=== PATIENT | female | born 1945 | race Caucasian/White ===

== ENCOUNTER 2024-10-26 19:52 | Inpatient (IN) | payer MEDICARE, OTHER ==
--- NOTE | 2024-10-26 20:31 | ED ---
Fall HPI - General Chief Complaint: Fall Stated Complaint: Fall, Right pneumothorax Time Seen by Provider: 10/26/24 20:01 Source: patient, EMS Mode of arrival: EMS - History of Present Illness Initial Comments: This patient arrives as transfer from [facility]. The patient had gone to have appointment with her primary physician and was transferred to the emergency department. She has had multiple recent falls and complains of some lightheadedness when standing. The patient was evaluated at the emergency department where she was found to be moderately anemic compared with her previous labs and she also is reported to have had new displaced right posterior fourth rib fracture with an associated right sided pneumothorax. The patient's complete workup included labs with a white blood cell count 12.7, hemoglobin 8.4, hematocrit 25.2, platelets 433. Chemistries sodium 143, potassium 3.4, chloride 104, CO2 28, BUN 35, creatinine 0.9, glucose 184. AST 85, ALT 50. Troponin normal. Magnesium normal. The patient also had CT of the brain which was negative for acute injury. She had CT of the cervical spine which did reveal presence of pneumothorax on the right side. The spine with no acute fracture. 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 Fall Occurred: home Loss of Consciousness: none Prolonged Down Time?: no Symptoms Prior to Fall: none Location: head, chest, back Severity: moderate Quality: sharp Context: tripped/slipped Associated Symptoms: headache, chest paint - Related Data Home Medications Medication Instructions Recorded Confirmed lisinopriL [Prinivil] 20 mg PO DAILY 05/01/15 10/26/24 Alendronate Sodium [Fosamax] 70 mg PO WEEKLY 10/26/24 10/26/24 Ammonium Lactate Cream [Lac-Hydrin 1 applic TOPICAL BID PRN 10/26/24 10/26/24 12% Cream] Cholecalciferol [Vitamin D3 (125 125 mcg PO DAILY 10/26/24 10/26/24 Mcg = 5000 Iu)] Levothyroxine Sodium [Synthroid] 50 mcg PO DAILY 10/26/24 10/26/24 Charles Natural Red Yeast Rice 1 cap PO DAILY 10/26/24 10/26/24 1200-600mg Cap Rosuvastatin [Crestor] 10 mg PO DAILY 10/26/24 10/26/24 Triamcinolone 0.1% Cream [Kenalog 1 applic TOPICAL BID PRN 10/26/24 10/26/24 0.1% Cream] amLODIPine [Norvasc] 10 mg PO DAILY 10/26/24 10/26/24 Previous Rx's Medication Instructions Recorded Acetaminophen Tab [Tylenol Tab] 650 mg PO Q4H PRN #30 tablet 10/31/24 Ibuprofen [Motrin] 600 mg PO Q8HR PRN #30 tab 10/31/24 QUEtiapine [SEROquel] 25 mg PO HS tab 10/31/24 Allergies Allergy/AdvReac Type Severity Reaction Status Date / Time No Known Allergies Allergy Verified 10/26/24 21:03 Review of Systems ROS Statement: Those systems with pertinent positive or pertinent negative responses have been documented in the HPI. ROS Other: All systems not noted in ROS Statement are negative. Constitutional: Reports: weakness Eyes: Denies: vision change Respiratory: Denies: cough, dyspnea Cardiovascular: Reports: chest pain. Denies: palpitations Gastrointestinal: Denies: abdominal pain, vomiting, diarrhea Genitourinary: Denies: dysuria, hematuria Musculoskeletal: Reports: back pain Skin: Denies: rash Neurological: Denies: headache, weakness, numbness Past Medical History Past Medical History: Hypertension Additional Past Medical History / Comment(s): Wound on R leg below knee and foot not healing History of Any Multi-Drug Resistant Organisms: None Reported Additional Past Surgical History / Comment(s): cyst on vocal cord Past Anesthesia/Blood Transfusion Reactions: No Reported Reaction Past Psychological History: No Psychological Hx Reported Past Alcohol Use History: Occasional Past Drug Use History: None Reported - Past Family History Mother Family Medical History: No Reported History Additional Family Medical History / Comment(s): age 83. Fell and broke hip. Father Family Medical History: No Reported History Additional Family Medical History / Comment(s): age 75 of TB General Exam General appearance: alert, in no apparent distress Head exam: Present: atraumatic, normocephalic Eye exam: Present: normal appearance, EOMI. Absent: scleral icterus, conjunctival injection ENT exam: Present: normal oropharynx Neck exam: Present: normal inspection, full ROM. Absent: tenderness Respiratory exam: Present: normal lung sounds bilaterally, chest wall tenderness. Absent: respiratory distress, wheezes, rales, rhonchi, stridor, accessory muscle use Cardiovascular Exam: Present: regular rate, normal rhythm, normal heart sounds. Absent: systolic murmur, diastolic murmur, rubs, gallop GI/Abdominal exam: Present: soft. Absent: distended, tenderness, guarding, rebound, rigid, mass Extremities exam: Present: full ROM, normal capillary refill, other (Ecchymosis and swelling from distal thigh to ankle on right side). Absent: tenderness, pedal edema, calf tenderness Back exam: Present: normal inspection. Absent: vertebral tenderness Neurological exam: Present: alert. Absent: motor sensory deficit Skin exam: Present: warm, dry, intact. Absent: rash Course Vital Signs 10/26/24 10/27/24 10/27/24 19:56 00:56 04:10 Temperature 99.0 F Pulse Rate 90 81 77 Respiratory 17 15 14 Rate Blood Pressure 130/87 120/58 O2 Sat by Pulse 95 95 93 L Oximetry 10/27/24 10/27/24 10/27/24 05:17 08:18 09:05 Temperature 98.4 F Pulse Rate 85 80 85 Respiratory 15 16 16 Rate Blood Pressure 128/59 129/58 134/66 O2 Sat by Pulse 95 95 100 Oximetry 10/27/24 10:47 Temperature Pulse Rate 80 Respiratory 16 Rate Blood Pressure 119/48 O2 Sat by Pulse 100 Oximetry Medical Decision Making - Medical Decision Making The patient had CT scan of the chest that I interpreted to show rib fracture as well as hemopneumothorax. Was pt. sent in by a medical professional or institution (, PA, TEXTILE ARTIST, urgent care, hospital, or custodial...) When possible be specific @ -Patient is here as a transfer from outside hospital Did you speak to anyone other than the patient for history (EMS, parent, family, police, friend...)? What history was obtained from this source @ -[No] Did you review nursing and triage notes (agree or disagree)? Why? @ -[I reviewed and agree with nursing and triage notes] Were old charts reviewed (outside hosp., previous admission, EMS record, old EKG, old radiological studies, urgent care reports/EKG's, custodial records)? Report findings @ -[No old charts were reviewed] Differential Diagnosis (chest pain, altered mental status, abdominal pain women, abdominal pain men, vaginal bleeding, weakness, fever, dyspnea, syncope, headache, dizziness, GI bleed, back pain, seizure, CVA, palpatations, mental hea lth, musculoskeletal)? @ -[Differential Musculoskeletal Muscular strain, contusion, ligament sprain, fracture, arthritis, septic arthritis, bursitis, cellulitis, muscle spasm, nerve compression, DVT, arterial occlusion, herpes zoster, electrolyte abnormality, tumor.... This is not meant to be in all inclusive list EKG interpreted by me (3pts min.). @ -[As above] X-rays interpreted by me (1pt min.). @ -[None done] CT interpreted by me (1pt min.). @ -I interpreted as above U/S interpreted by me (1pt. min.). @ -[None done] What testing was considered but not performed or refused? (CT, X-rays, U/S, labs)? Why? @ -[None] What meds were considered but not given or refused? Why? @ -[None] Did you discuss the management of the patient with other professionals (professionals i.e. , PA, TEXTILE ARTIST, lab, RT, psych nurse, social work professor, tumbler operator, teacher, executive vice president and chief financial officer, geriatric case manager)? Give summary @ -[Case discussed with the admitting physician and also with the cardiothoracic service who will see the patient Was smoking cessation discussed for >3mins.? @ -[No] Was critical care preformed (if so, how long)? @ -[No] Were there social determinants of health that impacted care today? How? (H omelessness, low income, unemployed, alcoholism, drug addiction, transportation, low edu. Level, literacy, decrease access to med. care, usp, rehab)? @ -[No] Was there de-escalation of care discussed even if they declined (Discuss DNR or withdrawal of care, Hospice)? DNR status @ -[No] What co-morbidities impacted this encounter? (DM, HTN, Smoking, COPD, CAD, Cancer, CVA, ARF, Chemo, Hep., AIDS, mental health diagnosis, sleep apnea, morbid obesity)? @ -[None] Was patient admitted / discharged? Hospital course, mention meds given and route, prescriptions, significant lab abnormalities, going to OR and other pertinent info. @ -[Patient is admitted to have consultation with cardiothoracic surgery regarding the hemopneumothorax. Also will have consultation with anesthesiology for pain control however pain is well-controlled currently Undiagnosed new problem with uncertain prognosis? @ -[No] Drug Therapy requiring intensive monitoring for toxicity (Heparin, Nitro, Insulin, Cardizem)? @ -[No] Were any procedures done? @ -[No] Diagnosis/symptom? @ -[History of multiple recent falls Acute rib fractures Acute hemopneumothorax Anemia Acute, or Chronic, or Acute on Chronic? @ -[Acute Uncomplicated (without systemic symptoms) or Complicated (systemic symptoms)? @ -[Uncomplicated Side effects of treatment? @ -[No] Exacerbation, Progression, or Severe Exacerbation? @ -[No] Poses a threat to life or bodily function? How? (Chest pain, [place], [place], pneumonia, PE, COPD, DKA, ARF, appy, cholecystitis, CVA, Diverticulitis, Homicidal, Suicidal, threat to staff... and all critical care pts) @ -[Yes All treatments are based on ideal body weight as in ED triage - Lab Data Result diagrams: 10/30/24 05:35 10/29/24 07:09 Lab Results 10/26/24 10/26/24 10/26/24 Range/Units 20:57 20:57 20:57 WBC 12.2 H (3.8-10.6) k/uL RBC 2.83 L (3.80-5.40) m/uL Hgb 7.9 L (11.4-16.0) gm/dL Hct 24.2 L (34.0-46.0) % MCV 85.7 (80.0-100.0) fL MCH 27.9 (25.0-35.0) pg MCHC 32.5 (31.0-37.0) g/dL RDW 14.5 (11.5-15.5) % Plt Count 379 (150-450) k/uL MPV 7.4 Neutrophils % 76 % Lymphocytes % 15 % Monocytes % 6 % Eosinophils % 2 % Basophils % 0 % Neutrophils # 9.3 H (1.3-7.7) k/uL Lymphocytes # 1.8 (1.0-4.8) k/uL Monocytes # 0.8 (0-1.0) k/uL Eosinophils # 0.2 (0-0.7) k/uL Basophils # 0.0 (0-0.2) k/uL Hypochromasia Slight PT 10.0 (10.0-12.5) sec INR 0.9 (<1.2) APTT 18.6 L (22.0-30.0) sec Sodium 140 (137-145) mmol/L Potassium 3.7 (3.5-5.1) mmol/L Chloride 104 (98-107) mmol/L Carbon Dioxide 27 (22-30) mmol/L Anion Gap 9 mmol/L BUN 32 H (7-17) mg/dL Creatinine 0.68 (0.52-1.04) mg/dL Est GFR (CKD-EPI)AfAm >90 (>60 ml/min/1.73 sqM) Est GFR (CKD-EPI)NonAf 84 (>60 ml/min/1.73 sqM) Glucose 106 H (74-99) mg/dL Calcium 8.7 (8.4-10.2) mg/dL Total Bilirubin 1.2 (0.2-1.3) mg/dL AST 99 H (14-36) U/L ALT 56 H (4-34) U/L Alkaline Phosphatase 78 (38-126) U/L Total Protein 5.7 L (6.3-8.2) g/dL Albumin 3.1 L (3.5-5.0) g/dL Disposition Clinical Impression: Fall, Right rib fracture, Hemopneumothorax Disposition: ADMITTED IP TO THIS [facility] Condition: Stable Is patient prescribed a controlled substance at d/c from ED?: No
--- NOTE | 2024-10-26 21:05 | CT ---
EXAMINATION TYPE: CT chest wo con DATE OF EXAM: 10/26/2024 COMPARISON: None CLINICAL INDICATION: Female, 79 years old with history of evaluate pneumothorax; [facility], Evaluate pneumo thorax. TECHNIQUE: CT scan of the thorax is performed without IV contrast. CT DLP: 248.[address] CTDI: mGy Automated exposure control for dose reduction was used. FINDINGS: LUNGS: There is an approximate 10% right basilar pneumothorax. There is evidence of right basilar ple ural effusion and/or hemothorax with compressive atelectasis or contusive change. The left lung is cl ear. Chronic elevation right hemidiaphragm. MEDIASTINUM: Lack of IV contrast is noted to limit evaluation for mediastinal and especially hilar ad enopathy. There are no definitive greater than 1 cm hilar or mediastinal lymph nodes. No cardiomega ly or pericardial effusion is seen. OTHER: Multiple predominantly remote right-sided rib fractures are seen. There appears to be acute n ondisplaced rib fracture of right rib 4 and 5. Nephrolithiasis right kidney. IMPRESSION: 1. 10% right basilar pneumothorax. 2. Multiple predominantly remote right-sided rib fractures are seen. There appears to be acute nondi splaced rib fracture of right rib 4 and 5. 3. There is evidence of right basilar pleural effusion and/or hemothorax with compressive atelectasis or contusive change. Follow-up recommendations for incidental pulmonary nodules are per [employer] [place] [employer] or [employer] [place] [employer]. [facility], , 10/26/2024 9:03 PM
[2024-10-26 21:14] LABS: Basophils % (A) 0 %; Eosinophils # (A) 0.2 k/uL (0-0.7); Eosinophils % (A) 2 %; HCT 24.2 % (34.0-46.0); HGB 7.9 gm/dL (11.4-16.0); Hypochromasia Slight; Lymphocytes # (A) 1.8 k/uL (1.0-4.8); Lymphocytes % (A) 15 %; MCH 27.9 pg (25.0-35.0); MCHC 32.5 g/dL (31.0-37.0); MCV 85.7 fL (80.0-100.0); Mean Platelet Volume 7.4; Monocytes # (A) 0.8 k/uL (0-1.0); Monocytes % (A) 6 %; Neutrophils # (A) 9.3 k/uL (1.3-7.7); Neutrophils % (A) 76 %; Platelet Count 379 k/uL (150-450); RBC 2.83 m/uL (3.80-5.40); RDW 14.5 % (11.5-15.5); WBC 12.2 k/uL (3.8-10.6)
[2024-10-26 21:24] LABS: ALT 56 U/L (4-34); AST 99 U/L (14-36); African American GFR (CKD) >90 (>60 ml/min/1.73 sqM); Albumin 3.1 g/dL (3.5-5.0); Alkaline Phosphatase 78 U/L (38-126); Anion Gap 9 mmol/L; Blood Urea Nitrogen 32 mg/dL (7-17); Calcium 8.7 mg/dL (8.4-10.2); Carbon Dioxide 27 mmol/L (22-30); Chloride 104 mmol/L (98-107); Glucose 106 mg/dL (74-99); Non-African American GFR(CKD) 84 (>60 ml/min/1.73 sqM); Potassium 3.7 mmol/L (3.5-5.1); Sodium 140 mmol/L (137-145); Total Bilirubin 1.2 mg/dL (0.2-1.3); Total Protein 5.7 g/dL (6.3-8.2)
[2024-10-26 21:28] LABS: INR 0.9 (<1.2)
[2024-10-26 21:34] LABS: Partial Thromboplastin Time 18.6 sec (22.0-30.0)
[2024-10-26] MEDS ORDERED: MAGNESIUM HYDROXIDE 2,400 MG/30 ML CUP PO PRN (22:48)
[2024-10-26] MEDS ORDERED: MORPHINE SULFATE 4 MG/ML SYRINGE IV PRN (22:48)
[2024-10-26] MEDS ORDERED: NALOXONE 0.4 MG/ML 1 ML VIAL IV PRN (22:48)
[2024-10-26] MEDS ORDERED: HYDROcodone/APAP 5-325MG 1 EACH TAB PO PRN (22:48)
[2024-10-26] MEDS ORDERED: MAG HYDROX/AL HYDROX/SIMETH 30 ML CUP PO PRN (22:48)
[2024-10-26] MEDS ORDERED: DOCUSATE 100 MG CAP PO PRN (22:48)
[2024-10-27] MEDS: SODIUM CHLORIDE 0.9% 1,000 ML IV SCH (00:47)
--- NOTE | 2024-10-27 01:18 | XR ---
EXAM: XR Right Femur, 2 Views CLINICAL HISTORY: ITS.REASON XR Reason: fall injury TECHNIQUE: Frontal and lateral views of the right femur. COMPARISON: No relevant prior studies available. FINDINGS: Bones/joints: Unremarkable. No acute fracture. No dislocation. Soft tissues: Unremarkable. IMPRESSION: No acute fracture.
--- NOTE | 2024-10-27 05:46 | XR ---
EXAMINATION TYPE: XR tibia fibula RT DATE OF EXAM: 10/27/2024 12:03 AM COMPARISON: None. CLINICAL INDICATION: Female, 79 years old with history of fall injury, with pain TECHNIQUE: Two views of the right leg are obtained. FINDINGS: There is no acute fracture or dislocation seen in the right tibia or fibula. The right kn ee and ankle joints appear within normal limits. Mild diffuse subcutaneous edema is seen. IMPRESSION: There is no acute fracture or dislocation seen in the right tibia or fibula. [facility], , 10/27/2024 5:44 AM
[2024-10-27] MEDS: LEVOTHYROXINE 50 MCG TAB PO SCH (06:08)
--- NOTE | 2024-10-27 06:59 | P.CNPUL ---
History of Present Illness Consult date: 10/27/24 Requesting physician: Amando Nuñez Reason for consult: other (Right-sided traumatic hydropneumothorax) Chief complaint: Multiple falls History of present illness: Patient is a 79-year-old female with past medical history significant for hypertension, hyperlipidemia, hypothyroidism. Patient originally presented to [facility] after experiencing multiple falls at home. Found to have acute right-sided rib fractures and small pneumothorax. She was transferred to our facility. Patient is currently being evaluated in the emergency department.She is a poor historian. She is awake and alert. She is on 2 L/min nasal cannula. SpO2 is 92%. Right lateral chest is tender to palpation. No crepitus or subcutaneous emphysema. Equal lung sounds. She does have significant edema and trauma to her right lower extremity. Moving all 4 extremities without significant limitation or discomfort. She states over the last week or so she has had lightheadedness on standing. Multiple falls. States that she is supposed to be walking with a walker, but does not. Denies any head trauma. Denies anticoagulant use. Denies losing consciousness, seizures, heart palpitations, chest pain. CT scan of chest demonstrating acute nondisplaced rib fractures of right ribs 4 and 5. Small 10% right basilar pneumothorax. Also, right basilar effusion, likely hemothorax in the setting of trauma. CBC: WC count 12.2, hemoglobin 7.9, hematocrit 24.2, platelets 379. Coagulation profile includes a PT of 10, INR of 0.9, APTT 18.6. CMP: Sodium 140, potassium 3.7, chloride 104, serum bicarb 27, BUN 32, creatinine 0.68, glucose 106. Lactic 1.8. LFTs u mildly elevated. Normal saline infusing at 75 mL/h. Current vitals: Heart rate 81 bpm, blood pressure 120/58, SpO2 94% on 2 L/min nasal cannula. Nontachypneic. No respiratory distress noted. Incentive spirometer at bedside. Pain is reportedly well-controlled. As needed analgesics ordered. Review of Systems Constitutional: Reports fatigue, Denies chills, Denies fever, Denies poor appetite, Denies weight gain, Denies weight loss Ears, nose, mouth and throat: Denies headache, Denies nasal congestion, Denies nasal discharge, Denies post-nasal drip, Denies sinus pain, Denies sinus pressure, Denies sore throat Cardiovascular: Reports lightheadedness, Denies chest pain, Denies edema, Denies irregular heart beat, Denies orthopnea, Denies palpitations, Denies paroxysmal nocturnal dyspnea, Denies shortness of breath, Denies syncope Respiratory: Reports pain on inspiration, Denies congestion, Denies cough, Denies cough with sputum, Denies hemoptysis, Denies home oxygen, Denies wheezing Gastrointestinal: Denies abdominal pain, Denies constipation, Denies diarrhea, Denies hematemesis, Denies nausea, Denies vomiting Genitourinary: Denies dysuria Musculoskeletal: Denies leg numbness/tingling Integumentary: Reports color changes Neurological: Denies confusion, Denies head injury, Denies headaches, Denies numbness, Denies paralysis, Denies paresthesias, Denies seizures, Denies syncope, Denies tremors, Denies visual changes Psychiatric: Denies anxiety, Denies depression Past Medical History Past Medical History: Hypertension Additional Past Medical History / Comment(s): Wound on R leg below knee and foot not healing History of Any Multi-Drug Resistant Organisms: None Reported Additional Past Surgical History / Comment(s): cyst on vocal cord Past Anesthesia/Blood Transfusion Reactions: No Reported Reaction Past Psychological History: No Psychological Hx Reported Past Alcohol Use History: Occasional Past Drug Use History: None Reported - Past Family History Mother Family Medical History: No Reported History Additional Family Medical History / Comment(s): age 83. Fell and broke hip. Father Family Medical History: No Reported History Additional Family Medical History / Comment(s): age 75 of TB Medications and Allergies Home Medications Medication Instructions Recorded Confirmed Type lisinopriL [Prinivil] 20 mg PO DAILY 05/01/15 10/26/24 History Alendronate Sodium [Fosamax] 70 mg PO WEEKLY 10/26/24 10/26/24 History Ammonium Lactate Cream [Lac-Hydrin 1 applic TOPICAL BID PRN 10/26/24 10/26/24 History 12% Cream] Cholecalciferol [Vitamin D3 (125 125 mcg PO DAILY 10/26/24 10/26/24 History Mcg = 5000 Iu)] Levothyroxine Sodium [Synthroid] 50 mcg PO DAILY 10/26/24 10/26/24 History Charles Natural Red Yeast Rice 1 cap PO DAILY 10/26/24 10/26/24 History 1200-600mg Cap Rosuvastatin [Crestor] 10 mg PO DAILY 10/26/24 10/26/24 History Triamcinolone 0.1% Cream [Kenalog 1 applic TOPICAL BID PRN 10/26/24 10/26/24 History 0.1% Cream] amLODIPine [Norvasc] 10 mg PO DAILY 10/26/24 10/26/24 History Allergies Allergy/AdvReac Type Severity Reaction Status Date / Time No Known Allergies Allergy Verified 10/26/24 21:03 Physical Exam Vitals: Vital Signs Temp Pulse Resp BP Pulse Ox 10/27/24 00:56 81 15 120/58 95 10/26/24 19:56 99.0 F 90 17 130/87 95 Intake and Output 10/26/24 10/26/24 10/27/24 14:59 22:59 06:59 Other: Weight 48.988 kg GENERAL EXAM: Alert, 79-year-old female, on 2 L/min nasal cannula, SpO2 92%, in no respiratory distress. HEAD: Normocephalic and atraumatic EYES: Normal reaction of pupils, equal size. NOSE: Clear with pink turbinates. THROAT: No erythema or exudates. NECK: No masses, no JVD. CHEST: Tender right lateral chest. No subcutaneous emphysema or crepitus. LUNGS: Equal air entry with diminished right basilar lung sounds. Equal chest excursion. No conversational dyspnea or accessory muscle use.. CVS: S1 and S2 normal with soft systolic murmur, regular rhythm. No extra heart sounds ABDOMEN: No hepatosplenomegaly, active bowel sounds, no guarding or rigidity. SPINE: No scoliosis or deformity SKIN: No rashes CENTRAL NERVOUS SYSTEM: No focal deficits, tone is normal in all 4 extremities. EXTREMITIES: Traumatic right lower extremity with bruising and edema. Peripheral pulses are intact. Neurovascular status intact. Results - Laboratory Findings CBC and BMP: 10/27/24 07:31 10/27/24 14:36 PT/INR, D-dimer PT 10.0 sec (10.0-12.5) 10/26/24 20:57 INR 0.9 (<1.2) 10/26/24 20:57 Abnormal lab findings: Abnormal Labs 10/26/24 10/26/24 10/26/24 20:57 20:57 20:57 WBC 12.2 H RBC 2.83 L Hgb 7.9 L Hct 24.2 L Neutrophils # 9.3 H APTT 18.6 L BUN 32 H Glucose 106 H AST 99 H ALT 56 H Total Protein 5.7 L Albumin 3.1 L - Diagnostic Findings CT scan - chest: image reviewed Assessment and Plan Assessment: Traumatic right-sided hydropneumothorax, CT scan of chest demonstrating acute nondisplaced rib fractures of right ribs 4 and 5. Small 10% right basilar pneumothorax. Also, right basilar effusion, likely hemothorax in the setting of trauma. Acute hypoxemic respiratory failure, currently on 2 L/min nasal cannula, secondary to above Traumatic fall History of gait disturbance and frequent falls, reportedly supposed to ambulate with walker Anemia, hemoglobin 7.9 g/dL History of hypertension History of hyperlipidemia History of hypothyroidism Former tobacco smoker, quit over 3 years ago Plan: Patient's medications, labs, imaging were reviewed No initial chest tube insertion, pneumothorax is small, less than 10%. There is right basilar fluid collection, likely hemothorax in the setting of trauma. May be considered for evacuation. Cardiothoracic surgery was consulted Encourage incentive spirometer hourly while awake Analgesics ordered as needed Continue supplemental oxygen maintain oxygen saturation of 92% or greater Repeat chest x-ray in the morning Monitor H&H Right tibia/fibia xray reviewed, I do not see any obvious fractures or dislocations. Continue to monitor neurovascular status of right lower extremity We will continue to follow, case will be discussed with Dr. Pandey. I have personally seen and examined the patient, performed the documentation and the assessment and plan as written. Number of minutes spent on the visit:20 This is a joint evaluation that was done along with the nurse practitioner. This evaluation was done more than 30 minutes. This 79-year-old female patient experienced a fall. She has been having frequent falls at home. She presented to us after she fell and she sustained right-sided rib fractures and a small right-sided pneumothorax. The patient also has developed a small right-sided pleural effusion which could essentially represent a small hemothorax. Reviewed the CAT scan of the chest that was done in the emergency department and the patient has a 10% right basilar pneumothorax, multiple right-sided rib fractures some of them being remote and the patient had acute nondisplaced rib fractures involving the fourth and fifth rib. There is also right basilar pleural effusion and some compressive atelectasis and elevation of right hemidiaphragm. Pain management will be consulted for pain control. The patient is currently on morphine 2 mg IV every 4 hours and [place] 5/325 1 tablet every 4 hours on a as needed basis. The patient is currently on 100% nonrebreather with a pulse ox of 99%. Hemoglobin at 7.9, stable and unchanged. Rest of electrolytes are all within normal limits. BUN is 32 with a creatinine of 0.6. The patient is on normal citrate of 75 cc an hour. Will try to wean down the FiO2 as tolerated and repeat chest x-ray in the morning. Chest tube should there be any worsening in the right-sided pleural effusion and/or pneumothorax. Time with Patient: Greater than 30
[2024-10-27 07:44] LABS: Basophils % (A) 0 %; Eosinophils # (A) 0.2 k/uL (0-0.7); Eosinophils % (A) 2 %; HCT 25.7 % (34.0-46.0); HGB 7.9 gm/dL (11.4-16.0); Hypochromasia Slight; Lymphocytes # (A) 1.8 k/uL (1.0-4.8); Lymphocytes % (A) 18 %; MCH 26.7 pg (25.0-35.0); MCHC 30.8 g/dL (31.0-37.0); MCV 86.7 fL (80.0-100.0); Mean Platelet Volume 7.5; Monocytes # (A) 0.6 k/uL (0-1.0); Monocytes % (A) 6 %; Neutrophils # (A) 7.1 k/uL (1.3-7.7); Neutrophils % (A) 72 %; Platelet Count 401 k/uL (150-450); RBC 2.97 m/uL (3.80-5.40); RDW 14.9 % (11.5-15.5); WBC 9.8 k/uL (3.8-10.6)
[2024-10-27] MEDS: lisinopriL 20 MG TAB PO SCH (08:19)
[2024-10-27] MEDS: ATORVASTATIN 20 MG TAB PO SCH (08:19)
[2024-10-27] MEDS: CHOLECALCIFEROL 125 MCG (5000 IU) TABLET PO SCH (08:19)
[2024-10-27] MEDS: amLODIPine 10 MG TAB PO SCH (08:19)
--- NOTE | 2024-10-27 08:21 | XR ---
EXAMINATION TYPE: XR chest 1V DATE OF EXAM: 10/27/2024 6:43 AM COMPARISON: None CLINICAL INDICATION: Female, 79 years old with history of Chest Trauma; [facility] TECHNIQUE: XR chest 1V Frontal view of the chest. FINDINGS: Lungs/Pleura: Elevated right diaphragm There is no evidence of pleural effusion, focal consolidation, or pneumothorax. Pulmonary vascularity: Unremarkable. Heart/mediastinum: Cardiomediastinal silhouette is unremarkable. Musculoskeletal: No acute osseous pathology. Remote appearing bilateral rib fractures and acute fract ures on right are less well appreciated compared to CT. Left clavicle remote fracture. IMPRESSION: No acute cardiopulmonary disease/process. [facility], , 10/27/2024 8:18 AM
--- NOTE | 2024-10-27 10:29 | P.GSCN ---
History of Present Illness Consult date: 10/27/24 Reason for Consult: Right-sided hemopneumothorax Requesting physician: Amando Nuñez History of present illness: This is a 79-year-old female who follows outpatient with a physician in [place]. She has a previous medical history of multiple falls at home with noncompliance with her walker, hypertension, hyperlipidemia, hypothyroid, right leg wound, and previous tobacco dependence. Apparently she presented to [facility] yesterday after another fall. She had multiple CTs and chest x- rays with noted small right basilar pneumothorax and hemothorax along with multiple right sided rib fractures. She was transferred to [facility] for higher level of care. CT of the chest and chest x-ray were reimaged here confirming tiny right sided basilar pneumothorax, multiple posterior right-sided rib fractures with displaced fourth rib fracture, small right sided hemothorax. Lab work revealed WBC 12.2, hemoglobin 7.9, INR 0.9, creatinine 0.68, lactic acid 1.8, AST 99, ALT 56. The patient has denied any pain and has not required any pain medication since transfer to [facility]. She was admitted to trauma services for evaluation and treatment with consultations placed to internal medicine, pulmonology, and cardiothoracic surgery. Review of Systems Review of systems was completed and was negative except as noted - Musculoskeletal Reports frequent falls Past Medical History Past Medical History: Hyperlipidemia, Hypertension, Thyroid Disorder Additional Past Medical History / Comment(s): Wound on R leg below knee and foot not healing; frequent falls; noncompliance with walker at home History of Any Multi-Drug Resistant Organisms: None Reported Additional Past Surgical History / Comment(s): cyst on vocal cord Past Anesthesia/Blood Transfusion Reactions: No Reported Reaction Past Psychological History: No Psychological Hx Reported Smoking Status: Former smoker Past Alcohol Use History: Occasional Past Drug Use History: None Reported - Past Family History Mother Family Medical History: No Reported History Additional Family Medical History / Comment(s): age 83. Fell and broke hip. Father Family Medical History: No Reported History Additional Family Medical History / Comment(s): age 75 of TB Medications and Allergies Home Medications Medication Instructions Recorded Confirmed Type lisinopriL [Prinivil] 20 mg PO DAILY 05/01/15 10/26/24 History Alendronate Sodium [Fosamax] 70 mg PO WEEKLY 10/26/24 10/26/24 History Ammonium Lactate Cream [Lac-Hydrin 1 applic TOPICAL BID PRN 10/26/24 10/26/24 History 12% Cream] Cholecalciferol [Vitamin D3 (125 125 mcg PO DAILY 10/26/24 10/26/24 History Mcg = 5000 Iu)] Levothyroxine Sodium [Synthroid] 50 mcg PO DAILY 10/26/24 10/26/24 History Charles Natural Red Yeast Rice 1 cap PO DAILY 10/26/24 10/26/24 History 1200-600mg Cap Rosuvastatin [Crestor] 10 mg PO DAILY 10/26/24 10/26/24 History Triamcinolone 0.1% Cream [Kenalog 1 applic TOPICAL BID PRN 10/26/24 10/26/24 History 0.1% Cream] amLODIPine [Norvasc] 10 mg PO DAILY 10/26/24 10/26/24 History Allergies Allergy/AdvReac Type Severity Reaction Status Date / Time No Known Allergies Allergy Verified 10/26/24 21:03 Surgical - Exam Vital Signs Temp Pulse Resp BP Pulse Ox 99.0 F 90 17 130/87 95 10/26/24 19:56 10/26/24 19:56 10/26/24 19:56 10/26/24 19:56 10/26/24 19:56 CONSTITUTIONAL: Awake and alert, appears comfortable, cooperative, well- developed, well-nourished, no pain, no acute distress EYES: Pupils equal, round, reactive to light, normal ocular movement ENT: Moist mucous membranes without oral lesions present NECK: No masses, no bruits, trachea midline RESPIRATORY: Lungs sounds clear to auscultation bilaterally, diminished in the right base. Respirations even, nonlabored. Currently on room air with oxygen saturation 100% CARDIOVASCULAR: S1, S2 present. Regular rate and rhythm, sinus rhythm on telemetry. Palpable peripheral pulses bilaterally. Bilateral lower extremity edema present. No calf pain or tenderness noted GASTROINTESTINAL: Abdomen soft, nontender, nondistended without masses or organomegaly noted. There is no rebound or guarding present. Active bowel sounds present 4 quadrants. GENITOURINARY: Deferred INTEGUMENTARY: Skin is warm and dry, multiple areas of ecchymosis to her lower extremities NEUROLOGIC: Cranial nerves II through XII intact, normal coordination, no obvious motor or sensory deficits, speech is normal MUSKULOSKELETAL: Able to move all extremities, strength equal bilaterally, normal posture PSYCHIATRIC: Alert and oriented to person place and time, appropriate affect Results - Labs 10/27/24 07:31 10/26/24 20:57 Abnormal Lab Results - Last 24 Hours (Table) 10/26/24 10/26/24 10/26/24 Range/Units 20:57 20:57 20:57 WBC 12.2 H (3.8-10.6) k/uL RBC 2.83 L (3.80-5.40) m/uL Hgb 7.9 L (11.4-16.0) gm/dL Hct 24.2 L (34.0-46.0) % MCHC (31.0-37.0) g/dL Neutrophils # 9.3 H (1.3-7.7) k/uL APTT 18.6 L (22.0-30.0) sec BUN 32 H (7-17) mg/dL Glucose 106 H (74-99) mg/dL AST 99 H (14-36) U/L ALT 56 H (4-34) U/L Total Protein 5.7 L (6.3-8.2) g/dL Albumin 3.1 L (3.5-5.0) g/dL 10/27/24 Range/Units 07:31 WBC (3.8-10.6) k/uL RBC 2.97 L (3.80-5.40) m/uL Hgb 7.9 L (11.4-16.0) gm/dL Hct 25.7 L (34.0-46.0) % MCHC 30.8 L (31.0-37.0) g/dL Neutrophils # (1.3-7.7) k/uL APTT (22.0-30.0) sec BUN (7-17) mg/dL Glucose (74-99) mg/dL AST (14-36) U/L ALT (4-34) U/L Total Protein (6.3-8.2) g/dL Albumin (3.5-5.0) g/dL Diabetes panel 10/26/24 Range/Units 20:57 Sodium 140 (137-145) mmol/L Potassium 3.7 (3.5-5.1) mmol/L Chloride 104 (98-107) mmol/L Carbon Dioxide 27 (22-30) mmol/L BUN 32 H (7-17) mg/dL Creatinine 0.68 (0.52-1.04) mg/dL Glucose 106 H (74-99) mg/dL Calcium 8.7 (8.4-10.2) mg/dL AST 99 H (14-36) U/L ALT 56 H (4-34) U/L Alkaline Phosphatase 78 (38-126) U/L Total Protein 5.7 L (6.3-8.2) g/dL Albumin 3.1 L (3.5-5.0) g/dL Calcium panel 10/26/24 Range/Units 20:57 Calcium 8.7 (8.4-10.2) mg/dL Albumin 3.1 L (3.5-5.0) g/dL Pituitary panel 10/26/24 Range/Units 20:57 Sodium 140 (137-145) mmol/L Potassium 3.7 (3.5-5.1) mmol/L Chloride 104 (98-107) mmol/L Carbon Dioxide 27 (22-30) mmol/L BUN 32 H (7-17) mg/dL Creatinine 0.68 (0.52-1.04) mg/dL Glucose 106 H (74-99) mg/dL Calcium 8.7 (8.4-10.2) mg/dL Adrenal panel 10/26/24 Range/Units 20:57 Sodium 140 (137-145) mmol/L Potassium 3.7 (3.5-5.1) mmol/L Chloride 104 (98-107) mmol/L Carbon Dioxide 27 (22-30) mmol/L BUN 32 H (7-17) mg/dL Creatinine 0.68 (0.52-1.04) mg/dL Glucose 106 H (74-99) mg/dL Calcium 8.7 (8.4-10.2) mg/dL Total Bilirubin 1.2 (0.2-1.3) mg/dL AST 99 H (14-36) U/L ALT 56 H (4-34) U/L Alkaline Phosphatase 78 (38-126) U/L Total Protein 5.7 L (6.3-8.2) g/dL Albumin 3.1 L (3.5-5.0) g/dL - Imaging Chest x-ray: report reviewed, image reviewed CT scan - chest: report reviewed, image reviewed Assessment and Plan Assessment: Right-sided traumatic hemopneumothorax, status post fall from standing Acute anemia, likely blood loss History of multiple falls at home with noncompliance with her walker Hypertension Hyperlipidemia Hypothyroid Right leg wound Previous tobacco dependence Plan: The patient was seen and examined in the emergency room with Dr. Stockton. She denied any pain during exam. Chart/diagnostics reviewed. We did ask our interventional radiology colleagues to place a right-sided pigtail for evacuation of hemothorax, however they did not feel it would be appropriate. Therefore at this time our plan is for full thoracostomy tube placement by Dr. Stockton, will complete in the operating room to minimize patient's pain. Patient was made NPO. We did discuss this plan with the patient. Medical management of other comorbidities per internal medicine, pulmonology, trauma services. Thank you for this consult, we will continue to follow along and make further recommendations as appropriate. I have personally seen and examined the patient, performed the documentation and the assessment and plan as written. Number of minutes spent on the visit: 30. Carri Tracy, PINKY-C
--- NOTE | 2024-10-27 11:41 | P.PAINPG ---
Objective - Vital Signs Vital signs: Vital Signs Temp 98.4 F 10/27/24 05:17 Pulse 80 10/27/24 10:47 Resp 16 10/27/24 10:47 BP 119/48 10/27/24 10:47 Pulse Ox 100 10/27/24 10:47 FiO2 Intake & Output 10/26/24 10/27/24 10/27/24 18:59 06:59 18:59 Output Total 1100 Balance -1100 Weight 48.988 kg Output: Urine 1100 - Labs CBC & Chem 7: 10/27/24 07:31 10/26/24 20:57 Labs: Abnormal Lab Results - Last 24 Hours (Table) 10/26/24 10/26/24 10/26/24 Range/Units 20:57 20:57 20:57 WBC 12.2 H (3.8-10.6) k/uL RBC 2.83 L (3.80-5.40) m/uL Hgb 7.9 L (11.4-16.0) gm/dL Hct 24.2 L (34.0-46.0) % MCHC (31.0-37.0) g/dL Neutrophils # 9.3 H (1.3-7.7) k/uL APTT 18.6 L (22.0-30.0) sec BUN 32 H (7-17) mg/dL Glucose 106 H (74-99) mg/dL AST 99 H (14-36) U/L ALT 56 H (4-34) U/L Total Protein 5.7 L (6.3-8.2) g/dL Albumin 3.1 L (3.5-5.0) g/dL 10/27/24 Range/Units 07:31 WBC (3.8-10.6) k/uL RBC 2.97 L (3.80-5.40) m/uL Hgb 7.9 L (11.4-16.0) gm/dL Hct 25.7 L (34.0-46.0) % MCHC 30.8 L (31.0-37.0) g/dL Neutrophils # (1.3-7.7) k/uL APTT (22.0-30.0) sec BUN (7-17) mg/dL Glucose (74-99) mg/dL AST (14-36) U/L ALT (4-34) U/L Total Protein (6.3-8.2) g/dL Albumin (3.5-5.0) g/dL PQRS Measure Charge Sheet Comment: HISTORY OF PRESENT ILLNESS: A 79 yr old inpatient female as a transfer from [facility] presents today w severe acute R rib pain secondary to R 4th/ 5th rib fractures due to multiple falls in home for evaluation. Pt appears confused which may be due to high dose of MS for pain. Pt states pain level is provoked at 8 /10 in intensity, constant, localized in the R chest, sharp in character w occasional shooting pain towards the R flanks. Pain is provoked by any movement. Pain is alleviated by walker for ambulatory assistance, medications (MS 4mg IVP q4h prn, [place] 5/325mg q4h prn, Tyl 650mg PO q6h prn, Narcan prn), repositioning and rest . PMH: OA, HTN, Hyperlipidemia, Hypothyroidism, Iron Def Anemia, OP PSH: Denies SH: No tobacco use, Occ ETOHuse, No illicit drug use FH: Mo- age 83 from broken hip. Fa- age 75 from TB All: See list Meds: See list REVIEW OF ORGAN SYSTEMS: CONSTITUTIONAL: No fevers or chills. No recent weight loss. NEUROLOGICAL: + numbness and tingling along the distal extremities. No seizure disorders or headaches. MUSCULOSKELETAL: + pain PSYCHIATRIC: Denies current depression or suicidal thoughts. Physical Examinations : Constitutional : Cooperative , not in acute distress . Neurologic : Cranial nerve II to XII intact. No focal neurological deficits. Psychiatric : alert & oriented x 3. Matching mood & appropriate affect. Judgment & insight intact. Musculoskeletal : +R rib TTP Cervical Spine Motor strength in the deltoid and biceps: Normal right side. Normal Left side Motor strength biceps and the wrist extensors: Normal right side . Normal left side Motor strength in the triceps muscle: Normal right side. Normal left side Deep tendon reflexes: Normal at the biceps. Normal at Brachioradialis. Normal at triceps Vertebral body tenderness to deep palpation over Cervical facet loading test: positive bilaterally Spurling test: positive bilaterally Neck distraction test: positive bilaterally Ashlyn sign: positive bilaterally Lumbar spine Motor strength lower extremities ,thigh and legs 5/5 Right side , 5/5 Left side Deep tendon reflexes : Normal Knee Jerk. Normal Ankle Jerk Vertebral body tenderness over Perkins Test positive Lumbar facet Loading Test: positive Right / positive Left Range of motion of the lumbar spine Flexion 30 degrees, extension 10 degrees Straight Leg Raise test: Left/ Right positive at degrees Vanna test: positive right / positive left. Severe tenderness over the Sacroiliac joint on the Right / Left sides Gaenslen test: positive bilaterally Seated flexion test: positive bilaterally. Sacral spine : Severe tenderness over the Sacroiliac joint: right side / left side Range of motion: Flexion of the lumbar spine <60 degrees Range of motion: Extension of the lumbar spine <20 degrees Gaenslen's Test positive Vanna test: positive right side / left side Thigh Thrust Test Sacral Thrust Test Imaging: CXR from 10/26/24 reviewed Assessment/ Plan : R 4th / 5th Rib Fracture s/p multiple falls Recommendation of medication management. [place] 5/325mg q4h prn moderate pain. Reduced MS to 2mg IVP q4h prn severe pain. Reduced MS dosage to see if confusion improves. All questions answered. I have spent greater than 30 minutes on patient care today. Dr Garner was available by phone for the evaluation of this patient. The time was used to review the medical records including relevant urine studies and Prescription history (MAPs), review of the available imaging, evaluation and examination of the patient, coordination of care with the medical staff and if applicable referring physicians, as well as creation of the medical record PQRS Narrative: Smoking Status Former smoker Blood Pressure 119/48 Pain Intensity 0 Scale Used Numeric (1 - 10) Home Medications: Ambulatory Orders lisinopriL [Prinivil] 20 mg PO DAILY 05/01/15 Alendronate Sodium [Fosamax] 70 mg PO WEEKLY 10/26/24 Ammonium Lactate Cream [Lac-Hydrin 12% Cream] 1 applic TOPICAL BID PRN 10/26/24 Cholecalciferol [Vitamin D3 (125 Mcg = 5000 Iu)] 125 mcg PO DAILY 10/26/24 Levothyroxine Sodium [Synthroid] 50 mcg PO DAILY 10/26/24 Charles Natural Red Yeast Rice 1200-600mg Cap 1 cap PO DAILY 10/26/24 Rosuvastatin [Crestor] 10 mg PO DAILY 10/26/24 Triamcinolone 0.1% Cream [Kenalog 0.1% Cream] 1 applic TOPICAL BID PRN 10/26/24 amLODIPine [Norvasc] 10 mg PO DAILY 10/26/24 Controlled Substance Measures - Controlled Substance Measures Is patient prescribed a controlled substance at discharge?: No
[2024-10-27] MEDS: IV FLUID CONTINUATION 1,000 ML IV ONE (11:58)
--- NOTE | 2024-10-27 14:18 | P.GSHP ---
History of Present Illness H&P Date: 10/27/24 CHIEF COMPLAINT: Fall HISTORY OF PRESENT ILLNESS: This is a 79-year-old female who was a transfer from [facility]. Patient has had multiple recent falls and had been complaining of lightheadedness. She was found to have a right fourth and fifth rib fracture with a right sided pneumothorax. Patient was transferred to [facility] for further evaluation. CT scan of the brain at [place] and C-spine were negative for acute findings. No evidence of bleed no evidence of fracture. Patient did have a CT scan of the chest here that reported a 10% right basilar pneumothorax. Multiple predominantly remote right-sided rib fractures. Acute nondisplaced rib fracture of the right rib fourth and fifth. Evidence of right basilar pleural effusion and/or hemothorax with compressive atelectasis or contusive changes. Patient is followed by pulmonary service and cardiothoracic service. Patient also was found to have significant bruising of the right leg. The bruising does appear to be old. Patient is able to move all 4 extremities. She denies any abdominal pain. She was able to tolerate breakfast this morning. Patient on nasal cannula. She denies any shortness of breath. She did complain of pain along her right rib cage. Patient denies being on any blood thinners. Patient has been admitted to trauma service. PAST MEDICAL HISTORY: Hypertension PAST SURGICAL HISTORY: none MEDICATIONS: See below ALLERGIES: See below SOCIAL HISTORY: No illicit drug use. REVIEW OF SYSTEMS: CONSTITUTIONAL: Denies fever or chills. HEENT: Denies blurred vision, vision changes, or eye pain. Denies hemoptysis CARDIOVASCULAR: Denies chest pain or pressure. RESPIRATORY: No shortness of breath. GASTROINTESTINAL: See HPI for pertinent findings HEMATOLOGIC: Denies bleeding disorders. GENITOURINARY: Denies any blood in urine or increased urinary frequency. SKIN: Denies pruitis. Denies rash. PHYSICAL EXAM: VITAL SIGNS: Reviewed GENERAL: Well-developed in no acute distress. HEENT: No sclera icterus. Extraocular movements grossly intact. Moist buccal mucosa. Head is atraumatic, normocephalic. No nasal drainage. Chest: No use of accessory muscles. Mild tenderness palpation of the right sided rib cage. No ecchymosis noted. ABDOMEN: Soft. Nondistended. Nontender NEUROLOGIC: Alert and oriented. Cranial nerves II through XII grossly intact. Extremities: Significant bruising along the right leg. The bruising does appear to be old there is some areas that are yellow and greenish bruising in color LABORATORY DATA: WBC 12.2 down to 9.8 Hgb 7.9 platelets 401 Sodium 140 potassium 3.7 creatinine 0.68 lactic acid 1.8 Total bilirubin 1.2 AST 99 ALT 56 IMAGING: Chest CT reports 10% right basilar pneumothorax. Multiple predominantly remote right sided rib fractures. Acute nondisplaced rib fracture of the right rib 4 and 5. Evidence of right basilar pleural effusion and/or hemothorax with compressive atelectasis and contusive change Right femur and tibia/ fibula x-ray no acute fracture Chest x-ray reports no acute cardiopulmonary disease process ASSESSMENT: 1. Falls with traumatic right-sided hemopneumothorax and nondisplaced rib fr actures of right ribs 4 and 5 2. Frequent falls 3. Anemia, possibly acute blood loss anemia. hemoglobin 7.9 on admission 4. Bruising of the right leg. No fracture on imaging PLAN: -Consult pulmonary service and cardiothoracic service for the hemopneumothorax. Case discussed with cardiothoracic nurse practitioner. They were planning to proceed with thoracostomy tube placement in OR but unfortunately they could not reach family for consent. -Encourage patient to use incentive spirometer -Continue pain management. Pain service has been consulted -Consult medicine service for medical management -Continue regular diet -Continue IV fluids -Consult PT OT -Consult telephonic nurse case manager for possible ECF placement -Follow-up on repeat chest x-ray in a.m. Physician Steel Detailer note has been reviewed by physician. Signing provider agrees with the documented findings, assessment, and plan of care. Past Medical History Past Medical History: Hypertension Additional Past Medical History / Comment(s): Wound on R leg below knee and foot not healing History of Any Multi-Drug Resistant Organisms: None Reported Additional Past Surgical History / Comment(s): cyst on vocal cord Past Anesthesia/Blood Transfusion Reactions: No Reported Reaction Past Psychological History: No Psychological Hx Reported Past Alcohol Use History: Occasional Past Drug Use History: None Reported - Past Family History Mother Family Medical History: No Reported History Additional Family Medical History / Comment(s): age 83. Fell and broke hip. Father Family Medical History: No Reported History Additional Family Medical History / Comment(s): age 75 of TB Medications and Allergies Home Medications Medication Instructions Recorded Confirmed Type lisinopriL [Prinivil] 20 mg PO DAILY 05/01/15 10/26/24 History Alendronate Sodium [Fosamax] 70 mg PO WEEKLY 10/26/24 10/26/24 History Ammonium Lactate Cream [Lac-Hydrin 1 applic TOPICAL BID PRN 10/26/24 10/26/24 History 12% Cream] Cholecalciferol [Vitamin D3 (125 125 mcg PO DAILY 10/26/24 10/26/24 History Mcg = 5000 Iu)] Levothyroxine Sodium [Synthroid] 50 mcg PO DAILY 10/26/24 10/26/24 History Charles Natural Red Yeast Rice 1 cap PO DAILY 10/26/24 10/26/24 History 1200-600mg Cap Rosuvastatin [Crestor] 10 mg PO DAILY 10/26/24 10/26/24 History Triamcinolone 0.1% Cream [Kenalog 1 applic TOPICAL BID PRN 10/26/24 10/26/24 History 0.1% Cream] amLODIPine [Norvasc] 10 mg PO DAILY 10/26/24 10/26/24 History Allergies Allergy/AdvReac Type Severity Reaction Status Date / Time No Known Allergies Allergy Verified 10/26/24 21:03 Surgical - Exam Vital Signs Temp Pulse Resp BP Pulse Ox 99.0 F 90 17 130/87 95 10/26/24 19:56 10/26/24 19:56 10/26/24 19:56 10/26/24 19:56 10/26/24 19:56 Results - Labs 10/27/24 07:31 10/26/24 20:57 Abnormal Lab Results - Last 24 Hours (Table) 10/26/24 10/26/24 10/26/24 Range/Units 20:57 20:57 20:57 WBC 12.2 H (3.8-10.6) k/uL RBC 2.83 L (3.80-5.40) m/uL Hgb 7.9 L (11.4-16.0) gm/dL Hct 24.2 L (34.0-46.0) % MCHC (31.0-37.0) g/dL Neutrophils # 9.3 H (1.3-7.7) k/uL APTT 18.6 L (22.0-30.0) sec BUN 32 H (7-17) mg/dL Glucose 106 H (74-99) mg/dL AST 99 H (14-36) U/L ALT 56 H (4-34) U/L Total Protein 5.7 L (6.3-8.2) g/dL Albumin 3.1 L (3.5-5.0) g/dL 10/27/24 Range/Units 07:31 WBC (3.8-10.6) k/uL RBC 2.97 L (3.80-5.40) m/uL Hgb 7.9 L (11.4-16.0) gm/dL Hct 25.7 L (34.0-46.0) % MCHC 30.8 L (31.0-37.0) g/dL Neutrophils # (1.3-7.7) k/uL APTT (22.0-30.0) sec BUN (7-17) mg/dL Glucose (74-99) mg/dL AST (14-36) U/L ALT (4-34) U/L Total Protein (6.3-8.2) g/dL Albumin (3.5-5.0) g/dL Diabetes panel 10/26/24 Range/Units 20:57 Sodium 140 (137-145) mmol/L Potassium 3.7 (3.5-5.1) mmol/L Chloride 104 (98-107) mmol/L Carbon Dioxide 27 (22-30) mmol/L BUN 32 H (7-17) mg/dL Creatinine 0.68 (0.52-1.04) mg/dL Glucose 106 H (74-99) mg/dL Calcium 8.7 (8.4-10.2) mg/dL AST 99 H (14-36) U/L ALT 56 H (4-34) U/L Alkaline Phosphatase 78 (38-126) U/L Total Protein 5.7 L (6.3-8.2) g/dL Albumin 3.1 L (3.5-5.0) g/dL Calcium panel 10/26/24 Range/Units 20:57 Calcium 8.7 (8.4-10.2) mg/dL Albumin 3.1 L (3.5-5.0) g/dL Pituitary panel 10/26/24 Range/Units 20:57 Sodium 140 (137-145) mmol/L Potassium 3.7 (3.5-5.1) mmol/L Chloride 104 (98-107) mmol/L Carbon Dioxide 27 (22-30) mmol/L BUN 32 H (7-17) mg/dL Creatinine 0.68 (0.52-1.04) mg/dL Glucose 106 H (74-99) mg/dL Calcium 8.7 (8.4-10.2) mg/dL Adrenal panel 10/26/24 Range/Units 20:57 Sodium 140 (137-145) mmol/L Potassium 3.7 (3.5-5.1) mmol/L Chloride 104 (98-107) mmol/L Carbon Dioxide 27 (22-30) mmol/L BUN 32 H (7-17) mg/dL Creatinine 0.68 (0.52-1.04) mg/dL Glucose 106 H (74-99) mg/dL Calcium 8.7 (8.4-10.2) mg/dL Total Bilirubin 1.2 (0.2-1.3) mg/dL AST 99 H (14-36) U/L ALT 56 H (4-34) U/L Alkaline Phosphatase 78 (38-126) U/L Total Protein 5.7 L (6.3-8.2) g/dL Albumin 3.1 L (3.5-5.0) g/dL
[2024-10-27 15:02] LABS: African American GFR (CKD) >90 (>60 ml/min/1.73 sqM); Blood Urea Nitrogen 19 mg/dL (7-17); Non-African American GFR(CKD) >90 (>60 ml/min/1.73 sqM)
--- NOTE | 2024-10-28 00:24 | P.CONS ---
History of Present Illness - Reason for Consult Consult date: 10/27/24 Medical management - Chief Complaint Status post fall - History of Present Illness Patient is a 79 female with a known history of hypertension, hypothyroidism, hyperlipidemia presents to ER status post fall while coming out of the walk-in shower. Patient initially presented to [facility] and was transferred to [facility] for further trauma evaluation. Patient otherwise denied any recent illnesses. No fever no chills. No chest pain or shortness of breath. Patient had CT head and CT cervical spine showed no acute fracture or dislocation. No acute findings noted. CT chest in the ER showed 10% right basilar pneumothorax. Multiple predominantly remote right-sided rib fractures are seen. There appears to be acute nondisplaced rib fracture of the right rib 4 and 5. There is evidence of right basilar pleural effusion and hemothorax with compressive atelectasis are continues to change. X-ray of the tibia/fibula showed no acute fracture or dislocation of the right tibia and fibula. Chest x-ray this morning showed no acute cardiopulmonary process. Laboratory data showed WBC 12.2 hemoglobin 7.9 and platelets 379 Sodium 140 potassium 3.7 chloride 104 bicarb is 27 BUN 32 and creatinine 0.68 and blood sugar 108 AST 99 ALT 56 and alk phos 78 total bili 1.2 and albumin 3.1. Review of Systems Constitutional: Patient denies any fever or chills . No generalized weakness or weight loss. Abdomen: Patient denied nausea vomiting and diarrhea and abdominal pain. Cardiovascular: Patient does have chest pain and short of breath no p alpitations. No leg swelling Respiratory: patient denied any cough or sputum production. No shortness of breath Neurologic: Patient denied any numbness or tingling. no headache. Musculoskeletal: Patient denies any complaints of joint swelling or deformity. Skin: Negative Psychiatric: Negative Endocrine: No heat or cold intolerance. No recent weight gain. Genitourinary: No dysuria or hematuria. All other 14 point ROS negative except the above Past Medical History Past Medical History: Hypertension Additional Past Medical History / Comment(s): Wound on R leg below knee and foot not healing History of Any Multi-Drug Resistant Organisms: None Reported Additional Past Surgical History / Comment(s): cyst on vocal cord Past Anesthesia/Blood Transfusion Reactions: No Reported Reaction Past Psychological History: No Psychological Hx Reported Past Alcohol Use History: Occasional Past Drug Use History: None Reported - Past Family History Mother Family Medical History: No Reported History Additional Family Medical History / Comment(s): age 83. Fell and broke hip. Father Family Medical History: No Reported History Additional Family Medical History / Comment(s): age 75 of TB Medications and Allergies Home Medications Medication Instructions Recorded Confirmed Type lisinopriL [Prinivil] 20 mg PO DAILY 05/01/15 10/26/24 History Alendronate Sodium [Fosamax] 70 mg PO WEEKLY 10/26/24 10/26/24 History Ammonium Lactate Cream [Lac-Hydrin 1 applic TOPICAL BID PRN 10/26/24 10/26/24 History 12% Cream] Cholecalciferol [Vitamin D3 (125 125 mcg PO DAILY 10/26/24 10/26/24 History Mcg = 5000 Iu)] Levothyroxine Sodium [Synthroid] 50 mcg PO DAILY 10/26/24 10/26/24 History Charles Natural Red Yeast Rice 1 cap PO DAILY 10/26/24 10/26/24 History 1200-600mg Cap Rosuvastatin [Crestor] 10 mg PO DAILY 10/26/24 10/26/24 History Triamcinolone 0.1% Cream [Kenalog 1 applic TOPICAL BID PRN 10/26/24 10/26/24 History 0.1% Cream] amLODIPine [Norvasc] 10 mg PO DAILY 10/26/24 10/26/24 History Allergies Allergy/AdvReac Type Severity Reaction Status Date / Time No Known Allergies Allergy Verified 10/26/24 21:03 Physical Exam Vitals: Vital Signs Temp Pulse Resp BP Pulse Ox 10/27/24 09:05 85 16 134/66 100 10/27/24 08:18 80 16 129/58 95 10/27/24 05:17 98.4 F 85 15 128/59 95 10/27/24 04:10 77 14 93 L 10/27/24 00:56 81 15 120/58 95 10/26/24 19:56 99.0 F 90 17 130/87 95 Intake and Output 10/26/24 10/27/24 10/27/24 22:59 06:59 14:59 Output Total 1100 Balance -1100 Output: Urine 1100 Other: Weight 48.988 kg PHYSICAL EXAMINATION: Patient is lying in the bed comfortably, no acute distress, awake alert and oriented.. HEENT: Normocephalic. Neck is supple. Pupils reactive. Nostrils clear. Oral cavity is moist. Neck reveals no JVD, carotid bruits, or thyromegaly. CHEST EXAMINATION: Trachea is central. Symmetrical expansion. Right basilar diminished sounds. Tenderness of the right rib cage. CARDIAC: Normal S1, S2 with no gallops. No murmurs ABDOMEN: Soft. Bowel sounds normal. No organomegaly. No abdominal bruits. Extremities: reveal no edema. Bruising over the right lower extremity no clubbing or cyanosis Neurologically awake, alert, oriented x3 with well-coordinated movements. No focal deficits noted Skin: No rash or skin lesions. Psychiatric: Coperative. Nonsuicidal Musculoskeletal: No joint swelling or deformity. Normal range of motion. Results CBC & Chem 7: 10/27/24 07:31 10/27/24 14:36 Labs: Abnormal Lab Results - Last 24 Hours (Table) 10/26/24 10/26/24 10/26/24 Range/Units 20:57 20:57 20:57 WBC 12.2 H (3.8-10.6) k/uL RBC 2.83 L (3.80-5.40) m/uL Hgb 7.9 L (11.4-16.0) gm/dL Hct 24.2 L (34.0-46.0) % MCHC (31.0-37.0) g/dL Neutrophils # 9.3 H (1.3-7.7) k/uL APTT 18.6 L (22.0-30.0) sec BUN 32 H (7-17) mg/dL Glucose 106 H (74-99) mg/dL AST 99 H (14-36) U/L ALT 56 H (4-34) U/L Total Protein 5.7 L (6.3-8.2) g/dL Albumin 3.1 L (3.5-5.0) g/dL 10/27/24 Range/Units 07:31 WBC (3.8-10.6) k/uL RBC 2.97 L (3.80-5.40) m/uL Hgb 7.9 L (11.4-16.0) gm/dL Hct 25.7 L (34.0-46.0) % MCHC 30.8 L (31.0-37.0) g/dL Neutrophils # (1.3-7.7) k/uL APTT (22.0-30.0) sec BUN (7-17) mg/dL Glucose (74-99) mg/dL AST (14-36) U/L ALT (4-34) U/L Total Protein (6.3-8.2) g/dL Albumin (3.5-5.0) g/dL Assessment and Plan Assessment: Status post fall with the right side hemopneumothorax and nondisplaced acute rib fractures of the right ribs 4 and 5. Acute hypoxic respiratory failure requiring 2 L oxygen via nasal cannula Remote right-sided rib fractures bilaterally. Status post mechanical fall Gait disturbance and frequent falls Anemia with hemoglobin 7.9 normocytic. Possible acute blood loss anemia Elevated liver enzymes Hypertension Hypothyroidism Hyperlipidemia Prior history of smoking DVT prophylaxis with SCDs. Plan: Patient will be continued on pain management, encourage incentive spirometry. Gentle IV hydration. Patient does have right basilar 10% pneumothorax and right basilar pleural effusion and hemothorax with compressive atelectasis. CT surgery was consulted. Trauma surgery and pulmonary is on board.. Continue supplemental oxygen. Monitor H&H. Continue with home blood pressure medications and follow-up closely. Repeat chest x-ray tomorrow. Time with Patient: Greater than 30
[2024-10-28] MEDS: MORPHINE SULFATE 2 MG/ML SYRINGE IV PRN (01:30)
[2024-10-28 09:19] LABS: Basophils % (A) 0 %; Eosinophils # (A) 0.2 k/uL (0-0.7); Eosinophils % (A) 2 %; HCT 23.6 % (34.0-46.0); HGB 7.4 gm/dL (11.4-16.0); Hypochromasia Marked; Lymphocytes # (A) 2.2 k/uL (1.0-4.8); Lymphocytes % (A) 20 %; MCH 27.8 pg (25.0-35.0); MCHC 31.5 g/dL (31.0-37.0); MCV 88.5 fL (80.0-100.0); Mean Platelet Volume 7.4; Monocytes # (A) 0.8 k/uL (0-1.0); Monocytes % (A) 7 %; Neutrophils # (A) 7.8 k/uL (1.3-7.7); Neutrophils % (A) 70 %; Platelet Count 411 k/uL (150-450); RBC 2.67 m/uL (3.80-5.40); RDW 14.7 % (11.5-15.5); WBC 11.1 k/uL (3.8-10.6)
--- NOTE | 2024-10-28 09:21 | XR ---
EXAMINATION TYPE: XR chest 1V DATE OF EXAM: 10/28/2024 6:46 AM COMPARISON: Chest radiograph from one day prior. CLINICAL INDICATION: Female, 79 years old with history of known right pneumothorax; TECHNIQUE: XR chest 1V Frontal view of the chest. FINDINGS: Lungs/Pleura: Similar elevated right diaphragm. Known right pneumothorax is not definitively visualiz ed. There is no evidence of pleural effusion, focal consolidation, or pneumothorax. Pulmonary vascularity: Unremarkable. Heart/mediastinum: Cardiomediastinal silhouette is unremarkable. Musculoskeletal: No acute osseous pathology. Right-sided rib fractures not well appreciated. IMPRESSION: 1. Known pneumothorax is not definitively visualized. 2. Elevated right diaphragm with multiple right-sided rib injuries. [facility], , 10/28/2024 9:18 AM
[2024-10-28 09:32] LABS: African American GFR (CKD) >90 (>60 ml/min/1.73 sqM); Anion Gap 3 mmol/L; Blood Urea Nitrogen 13 mg/dL (7-17); Calcium 8.4 mg/dL (8.4-10.2); Carbon Dioxide 29 mmol/L (22-30); Chloride 107 mmol/L (98-107); Glucose 88 mg/dL (74-99); Non-African American GFR(CKD) 85 (>60 ml/min/1.73 sqM); Potassium 4.3 mmol/L (3.5-5.1); Sodium 139 mmol/L (137-145)
--- NOTE | 2024-10-28 09:41 | P.PN ---
Subjective Progress Note Date: 10/28/24 Principal diagnosis: Right-sided traumatic hemopneumothorax, status post fall from standing, acute anemia. History of multiple falls at home with noncompliance with her walker, hypertension, hyperlipidemia, hypothyroid, right leg wound, previous tobacco dependence The patient was seen and examined this morning laying in bed on the cardiac stepdown unit in no acute distress. Originally our plan yesterday was for interventional radiology to place a pigtail catheter for hemothorax evacuation, however interventional radiology did not feel there was enough fluid that it would be beneficial. Subsequently Dr. Stockton was planning to take this patient to the operating room to place a full thoracostomy tube, however that plan was canceled as there was no family present to give consent. Upon further examination of the situation the patient is not in acute distress, she denies pain, she is hemodynamically stable, repeat chest film reviewed with Dr. Stockton and it is not significantly worse, original small basilar pneumothorax now presents apically as the patient is sitting upright, hemothorax not significantly increased. The patient is confused and very frail. Placing a thoracostomy tube at this point would likely cause her significant pain and may yield little benefit. No plan for chest tube placement at this time, however if she does get significantly worse clinically a chest tube could be considered. Objective - Vital Signs Vital signs: Vital Signs Temp 98.7 F 10/28/24 08:00 Pulse 88 10/28/24 08:00 Resp 18 10/28/24 08:00 BP 139/63 10/28/24 08:00 Pulse Ox 93 L 10/28/24 08:13 FiO2 Intake & Output 10/27/24 10/28/24 10/28/24 18:59 06:59 18:59 Intake Total 106 Output Total 760 1000 Balance -654 -1000 Weight 48.988 kg Intake: Oral 106 Output: Urine 760 1000 Other: Voiding Method Indwelling Catheter Indwelling Catheter - Exam CONSTITUTIONAL: Appears comfortable, cooperative, no acute distress RESPIRATORY: Lungs sounds diminished in the right base. Respirations even, n onlabored. Currently on 2 L nasal cannula with oxygen saturation 93-95% CARDIOVASCULAR: S1, S2 present. Regular rate and rhythm, sinus rhythm on telemetry. Palpable peripheral pulses bilaterally. Bilateral lower extremity edema present GASTROINTESTINAL: Abdomen soft, nontender, nondistended. Active bowel sounds present 4 quadrants GENITOURINARY: [place] present draining clear yellow urine INTEGUMENTARY: Skin is warm and dry, multiple areas of ecchymosis to her lower extremities NEUROLOGIC: Cranial nerves II through XII intact MUSKULOSKELETAL: Able to move all extremities, strength equal bilaterally PSYCHIATRIC: Alert and oriented to person only - Allied health notes Allied health notes reviewed: nursing - Labs CBC & Chem 7: 10/28/24 07:40 10/28/24 07:40 Labs: Abnormal Lab Results - Last 24 Hours (Table) 10/27/24 10/28/24 Range/Units 14:36 07:40 WBC 11.1 H (3.8-10.6) k/uL RBC 2.67 L (3.80-5.40) m/uL Hgb 7.4 L (11.4-16.0) gm/dL Hct 23.6 L (34.0-46.0) % Neutrophils # 7.8 H (1.3-7.7) k/uL BUN 19 H (7-17) mg/dL - Imaging and Cardiology Chest x-ray: report reviewed, image reviewed Assessment and Plan Assessment: Right-sided traumatic hemopneumothorax, status post fall from standing Acute anemia, likely blood loss History of multiple falls at home with noncompliance with her walker Hypertension Hyperlipidemia Hypothyroid Right leg wound Previous tobacco dependence Plan: No chest tube placement planned at this point, may consider if patient significantly deteriorates Pain control per current medication regimen Increase activity as tolerated, PT/OT consulted Encourage incentive spirometry use, wean O2 as tolerated Medical management of other comorbidities per internal medicine, pulmonology, trauma services Patient seen and examined. Agree with above.
--- NOTE | 2024-10-28 11:54 | P.PN ---
Subjective Progress Note Date: 10/28/24 SURGICAL PROGRESS NOTE CHIEF COMPLAINT: Fall HISTORY OF PRESENT ILLNESS: Patient lying in bed comfortably. She reports her pain is controlled. She is followed by cardiothoracic service. They are not pl anning any chest tube placement at this time. Chest x-ray this morning had reported that the no pneumothorax is not definitively visualized. Per nursing staff patient does have confusion, especially in the evening. Afebrile. On 2 L of oxygen satting at 93%. WBC 11.1 Hgb 7.4 platelets 411 PHYSICAL EXAM: VITAL SIGNS: Reviewed. GENERAL: Well-developed in no acute distress. ABDOMEN: Soft. Nondistended. Nontender. NEUROLOGIC: Awake and alert. Extremities: able to move all 4 extremities ASSESSMENT: 1. Falls with traumatic right-sided hemopneumothorax and nondisplaced rib fractures of right ribs 4 and 5 2. Frequent falls 3. Anemia, possibly acute blood loss anemia. hemoglobin 7.9 on admission 4. Bruising of the right leg. No fracture on imaging PLAN: -Continue to work with PT OT -No plans for chest tube at this time per cardiothoracic team -public affairs manager working on discharge planning. Possible ECF at discharge versus home with home care depending on what the family wants -Continue pain management -Repeat chest x-ray ordered for a.m. -Patient can be transferred to regular medical floor -Encouraged incentive spirometer use -DVT prophylaxis SCDs Physician Loaf Counter note has been reviewed by physician. Signing provider agrees with the documented findings, assessment, and plan of care. Objective - Vital Signs Vital signs: Vital Signs Temp 98.7 F 10/28/24 08:00 Pulse 88 10/28/24 08:00 Resp 18 10/28/24 08:00 BP 139/63 10/28/24 08:00 Pulse Ox 93 L 10/28/24 08:13 FiO2 Intake & Output 10/27/24 10/28/24 10/28/24 18:59 06:59 18:59 Intake Total 106 Output Total 760 1000 Balance -654 -1000 Weight 48.988 kg Intake: Oral 106 Output: Urine 760 1000 Other: Voiding Method Indwelling Catheter Indwelling Catheter - Labs CBC & Chem 7: 10/28/24 07:40 10/28/24 07:40 Labs: Abnormal Lab Results - Last 24 Hours (Table) 10/27/24 10/28/24 Range/Units 14:36 07:40 WBC 11.1 H (3.8-10.6) k/uL RBC 2.67 L (3.80-5.40) m/uL Hgb 7.4 L (11.4-16.0) gm/dL Hct 23.6 L (34.0-46.0) % Neutrophils # 7.8 H (1.3-7.7) k/uL BUN 19 H (7-17) mg/dL
--- NOTE | 2024-10-28 14:36 | P.PN ---
Subjective Progress Note Date: 10/28/24 Patient is a 79-year-old female with past medical history significant for hypertension, hyperlipidemia, hypothyroidism. Patient originally presented to [facility] after experiencing multiple falls at home. Found to have acute right-sided rib fractures and small pneumothorax. She was transferred to our facility. Patient is currently being evaluated in the emergency department.She is a poor historian. She is awake and alert. She is on 2 L/min nasal cannula. SpO2 is 92%. Right lateral chest is tender to palpation. No crepitus or subcutaneous emphysema. Equal lung sounds. She does have significant edema and trauma to her right lower extremity. Moving all 4 extremities without significant limitation or discomfort. She states over the last week or so she has had lightheadedness on standing. Multiple falls. States that she is supposed to be walking with a walker, but does not. Denies any head trauma. Denies anticoagulant use. Denies losing consciousness, seizur es, heart palpitations, chest pain. CT scan of chest demonstrating acute nondisplaced rib fractures of right ribs 4 and 5. Small 10% right basilar pneumothorax. Also, right basilar effusion, likely hemothorax in the setting of trauma. CBC: WC count 12.2, hemoglobin 7.9, hematocrit 24.2, platelets 379. Coagulation profile includes a PT of 10, INR of 0.9, APTT 18.6. CMP: Sodium 140, potassium 3.7, chloride 104, serum bicarb 27, BUN 32, creatinine 0.68, glucose 106. Lactic 1.8. LFTs u mildly elevated. Normal saline infusing at 75 mL/h. Current vitals: Heart rate 81 bpm, blood pressure 120/58, SpO2 94% on 2 L/min nasal cannula. Nontachypneic. No respiratory distress noted. Incentive spirometer at bedside. Pain is reportedly well-controlled. As needed analgesics ordered. 10/28/2024, the patient is clinically stable and still on 2 L of oxygen by nasal cannula. No interval worsening shortness of breath. Pain is under adequate control. Repeat chest x-ray was done this morning and there is no evidence of any pneumothorax. There is elevated right hemidiaphragm and multiple right-sided rib fractures and possibly development of right-sided pleural effusion which seems to be small at this point in time. Hemoglobin stable at 7.4, white second 11.1 and the platelet count is at 111. Rest of the electrolytes are all within normal limits. The patient has adequate pain control and she is using the incentive spirometer. She is also on normal saline at rate of 75 cc an hour. Rest of the medications will be resumed from home. Objective - Vital Signs Vital signs: Vital Signs Temp 98.7 F 10/28/24 08:00 Pulse 88 10/28/24 08:00 Resp 18 10/28/24 08:00 BP 139/63 10/28/24 08:00 Pulse Ox 93 L 10/28/24 08:13 FiO2 Intake & Output 10/27/24 10/28/24 10/28/24 18:59 06:59 18:59 Intake Total 106 Output Total 760 1000 Balance -654 -1000 Weight 48.988 kg Intake: Oral 106 Output: Urine 760 1000 Other: Voiding Method Indwelling Catheter Indwelling Catheter - Exam GENERAL EXAM: Alert, 79-year-old female, on 2 L/min nasal cannula, SpO2 92%, in no respiratory distress. HEAD: Normocephalic and atraumatic EYES: Normal reaction of pupils, equal size. NOSE: Clear with pink turbinates. THROAT: No erythema or exudates. NECK: No masses, no JVD. CHEST: Tender right lateral chest. No subcutaneous emphysema or crepitus. LUNGS: Equal air entry with diminished right basilar lung sounds. Equal chest excursion. No conversational dyspnea or accessory muscle use.. CVS: S1 and S2 normal with soft systolic murmur, regular rhythm. No extra heart sounds ABDOMEN: No hepatosplenomegaly, active bowel sounds, no guarding or rigidity. SPINE: No scoliosis or deformity SKIN: No rashes CENTRAL NERVOUS SYSTEM: No focal deficits, tone is normal in all 4 extremities. EXTREMITIES: Traumatic right lower extremity with bruising and edema. Peripheral pulses are intact. Neurovascular status intact. - Labs CBC & Chem 7: 10/28/24 07:40 10/28/24 07:40 Labs: Abnormal Lab Results - Last 24 Hours (Table) 10/27/24 10/28/24 Range/Units 14:36 07:40 WBC 11.1 H (3.8-10.6) k/uL RBC 2.67 L (3.80-5.40) m/uL Hgb 7.4 L (11.4-16.0) gm/dL Hct 23.6 L (34.0-46.0) % Neutrophils # 7.8 H (1.3-7.7) k/uL BUN 19 H (7-17) mg/dL Assessment and Plan Assessment: Traumatic right-sided hydropneumothorax, CT scan of chest demonstrating acute nondisplaced rib fractures of right ribs 4 and 5. Small 10% right basilar pneumothorax. Also, right basilar effusion, likely hemothorax in the setting of trauma. Acute hypoxemic respiratory failure, currently on 2 L/min nasal cannula, secondary to above Traumatic fall History of gait disturbance and frequent falls, reportedly supposed to ambulate with walker Chronic anemia with a stable hemoglobin of 7.4 History of hypertension History of hyperlipidemia History of hypothyroidism Former tobacco smoker, quit over 3 years ago Plan: Repeat chest x-ray from today shows no evidence of any significant pneumothorax. There is elevation of the right hemidiaphragm and possibly some atelectasis and small right-sided pleural effusion. Hemoglobin is stable Oxygenation stable and the patient remains on 2 L of oxygen by nasal cannula Adequate pain control cardiothoracic surgery is on the case No need for chest tube insertion or drainage at this point in time. Will repeat another chest x-ray in a.m. Continue normal saline Encourage ambulation and incentive spirometer Will follow
[2024-10-28] MEDS: QUEtiapine 25 MG TAB PO SCH (20:11)
--- NOTE | 2024-10-29 08:05 | XR ---
EXAMINATION TYPE: XR chest 1V DATE OF EXAM: 10/29/2024 4:33 AM COMPARISON: Chest radiograph from one day prior. CT. CLINICAL INDICATION: Female, 79 years old with history of ptx; [facility] TECHNIQUE: XR chest 1V Frontal view of the chest. FINDINGS/IMPRESSION: Worsening opacification of the right lung with pleural effusion and right-sided rib fractures. No pne umothorax visualized. The left lung is stable. [facility], , 10/29/2024 8:03 AM
--- NOTE | 2024-10-29 08:19 | P.PN ---
Subjective Progress Note Date: 10/29/24 Principal diagnosis: Right-sided traumatic hemopneumothorax, status post fall from standing, acute anemia. History of multiple falls at home with noncompliance with her walker, hypertension, hyperlipidemia, hypothyroid, right leg wound, previous tobacco dependence The patient was seen and examined this morning laying in bed on the cardiac stepdown unit in no acute distress. Originally our plan was for interventional radiology to place a pigtail catheter for hemothorax evacuation, however interventional radiology did not feel there was enough fluid that it would be beneficial. Subsequently Dr. Stockton was planning to take this patient to the operating room to place a full thoracostomy tube, however that plan was canceled as there was no family present to give consent. Upon further examination of the situation the patient is not in acute distress, she denies pain, she is hemodynamically stable, repeat chest film yesterday reviewed with Dr. Stockton and was not significantly worse. The patient is confused and very frail. Placing a thoracostomy tube would likely cause her significant pain and may yield little benefit. No plan for chest tube placement at this time, however if she does get significantly worse clinically a chest tube could be considered. Chest x-ray was reviewed this morning with Dr. Andino, does appear a bit worse although she is rotated. She is still hemodynamically stable. Less confused this morning as she does know she is in the hospital and that she came in due to fall. Await repeat hemoglobin, will plan for repeat CT of the chest tomorrow. Objective - Vital Signs Vital signs: Vital Signs Temp 98.4 F 10/29/24 01:00 Pulse 77 10/29/24 01:00 Resp 16 10/29/24 01:00 BP 104/49 10/29/24 01:00 Pulse Ox 91 L 10/29/24 01:00 FiO2 Intake & Output 10/28/24 10/29/24 10/29/24 18:59 06:59 18:59 Intake Total 120 600 Output Total 700 575 Balance -580 25 Weight 50.5 kg Intake: IV 600 Sodium Chloride 0.9% 1, 600 000 ml @ 75 mls/hr IV . [id number] [facility] Rx#:[id number] Oral 120 Output: Urine 700 575 Other: Voiding Method Indwelling Catheter Indwelling Catheter - Exam CONSTITUTIONAL: Appears comfortable, cooperative, no acute distress RESPIRATORY: Lungs sounds diminished in the right base. Respirations even, nonlabored. Currently on 3 L nasal cannula with oxygen saturation 91-92% CARDIOVASCULAR: S1, S2 present. Regular rate and rhythm, sinus rhythm on telemetry. Palpable peripheral pulses bilaterally. No edema present GASTROINTESTINAL: Abdomen soft, nontender, nondistended. Active bowel sounds present 4 quadrants GENITOURINARY: [place] present draining clear yellow urine INTEGUMENTARY: Skin is warm and dry, multiple areas of ecchymosis to her lower extremities NEUROLOGIC: Cranial nerves II through XII intact MUSKULOSKELETAL: Able to move all extremities, strength equal bilaterally PSYCHIATRIC: Alert and oriented to person and place, thinks it is 2024, does know she is here due to fall at home - Allied health notes Allied health notes reviewed: nursing - Labs CBC & Chem 7: 10/28/24 07:40 10/28/24 07:40 Labs: Abnormal Lab Results - Last 24 Hours (Table) 10/28/24 Range/Units 07:40 WBC 11.1 H (3.8-10.6) k/uL RBC 2.67 L (3.80-5.40) m/uL Hgb 7.4 L (11.4-16.0) gm/dL Hct 23.6 L (34.0-46.0) % Neutrophils # 7.8 H (1.3-7.7) k/uL - Imaging and Cardiology Chest x-ray: report reviewed, image reviewed Assessment and Plan Assessment: Right-sided traumatic hemopneumothorax, status post fall from standing Acute anemia, likely blood loss History of multiple falls at home with noncompliance with her walker Hypertension Hyperlipidemia Hypothyroid Right leg wound Previous tobacco dependence Plan: No chest tube placement planned at this point, may consider if patient significantly deteriorates Will repeat CT scan of chest tomorrow Pain control per current medication regimen Increase activity as tolerated, PT/OT consulted Encourage incentive spirometry use, wean O2 as tolerated Reorient patient as needed Medical management of other comorbidities per internal medicine, pulmonology, trauma services
[2024-10-29 08:42] LABS: ALT 31 U/L (4-34); AST 27 U/L (14-36); African American GFR (CKD) >90 (>60 ml/min/1.73 sqM); Albumin 2.6 g/dL (3.5-5.0); Alkaline Phosphatase 58 U/L (38-126); Anion Gap 3 mmol/L; Blood Urea Nitrogen 10 mg/dL (7-17); Calcium 8.3 mg/dL (8.4-10.2); Carbon Dioxide 27 mmol/L (22-30); Chloride 108 mmol/L (98-107); Glucose 83 mg/dL (74-99); Non-African American GFR(CKD) 87 (>60 ml/min/1.73 sqM); Potassium 3.9 mmol/L (3.5-5.1); Sodium 138 mmol/L (137-145); Total Bilirubin 0.7 mg/dL (0.2-1.3)
--- NOTE | 2024-10-29 09:00 | P.PN ---
Subjective Progress Note Date: 10/28/24 - Reason for Consult Consult date: 10/27/24 Medical management - Chief Complaint Status post fall - History of Present Illness Patient is a 79 female with a known history of hypertension, hypothyroidism, hyperlipidemia presents to ER status post fall while coming out of the walk-in shower. Patient initially presented to [facility] and was transferred to [facility] for further trauma evaluation. Patient otherwise denied any recent illnesses. No fever no chills. No chest pain or s hortness of breath. Patient had CT head and CT cervical spine showed no acute fracture or dislocatio n. No acute findings noted. CT chest in the ER showed 10% right basilar pneumothorax. Multiple pre dominantly remote right-sided rib fractures are seen. There appears to be acute nondisplaced rib fracture of the right rib 4 and 5. There is evidence of right basilar pleural effusion and hemothorax with compressive atelectasis are continues to change. X-ray of the tibia/fibula showed no acute fracture or dislocation of the right tibia and fibula. Chest x-ray this morning showed no acute cardiopulmonary process. Laboratory data showed WBC 12.2 hemoglobin 7.9 and platelets 379 Sodium 140 potassium 3.7 chloride 104 bicarb is 27 BUN 32 and creatinine 0.68 and blood sugar 108 AST 99 ALT 56 and alk phos 78 total bili 1.2 and albumin 3.1. 10/28/2021 Patient is seen in follow-up today being followed by multiple consultations. No plans for immediate chest tube at this time with pulmonary and CT surgery following recommending follow-up x-rays. No pneumothorax evident on imaging and will hold off on chest tube per CT surgery unless patient clinically becomes more distressed. Patient is currently confused and appears to be sundowning at night and will add Seroquel and recommend limiting narcotic agents if possible. Will have PT/OT therapy evaluate the patient for possible ECF although plan is most likely to return home with family. Review of systems: Constitutional: No reports of fatigue, fever, or chills Cardiovascular: No reports of chest pain or palpitations Respiratory: No reports of shortness of breath or cough, reports rib pain and discomfort when taking deep breaths GI: No reports of nausea, vomiting, or diarrhea : No reports of dysuria or retention Neurovascular: reports of generalized weakness All medications have been reviewed PHYSICAL EXAMINATION: Patient is lying in the bed comfortably, no acute distress, awake alert and oriented x 1-2, baseline, elderly appearing, ill-appearing, thin built.. HEENT: Normocephalic. Neck is supple. Pupils reactive. Nostrils clear. Oral cavity is moist. Neck reveals no JVD, carotid bruits, or thyromegaly. CHEST EXAMINATION: Trachea is central. Symmetrical expansion. Right basilar diminished sounds. Tenderness of the right rib cage. CARDIAC: Normal S1, S2 with no gallops. No murmurs ABDOMEN: Soft. Bowel sounds normal. No organomegaly. No abdominal bruits. Extremities: reveal no edema. Bruising over the right lower extremity no clubbing or cyanosis Neurologically awake, alert, oriented x3 with well-coordinated movements. Diffusely weak Skin: No rash or skin lesions. Psychiatric: Cooperative. Non-suicidal, anxious at times Musculoskeletal: No joint swelling or deformity. Normal range of motion. Assessment: Status post fall with the right side hemopneumothorax and nondisplaced acute rib fractures of the right ribs 4 and 5. Acute hypoxic respiratory failure requiring 2 L oxygen via nasal cannula Remote right-sided rib fractures bilaterally. Status post mechanical fall Gait disturbance and frequent falls with generalized weakness Anemia with hemoglobin 7.9 normocytic. acute blood loss anemia Elevated liver enzymes Hypertension Hypothyroidism Hyperlipidemia Mild protein calorie malnutrition with a BMI of 19.1 Prior history of smoking DVT prophylaxis with SCDs. GI prophylaxis Full code Plan: Patient will be continued on pain management, encourage incentive spirometry. Gentle IV hydration. And will follow-up with repeat labs Patient does have right basilar 10% pneumothorax and right basilar pleural effusion and hemothorax with compressive atelectasis. CT surgery following with no plans for immediate chest tube at this time recommend monitoring closely with repeat chest x-ray and possible repeat CT in the next few days. If patient becomes more compromised then consider chest tube Patient is admitted to trauma surgery and pulmonary along with CT surgery following .. Continue supplemental oxygen. Monitor H&H. Continue with home blood pressure medications and follow-up closely. Repeat chest x-ray tomorrow. The impression and plan of care has been dictated by Anaya Pedraza, Nurse Practitioner as directed. Dr. Sandra MD I have performed a history and examination and MDM of this patient, discussed the same with the dictator, and agree with the dictator's assessment and plan as written ,documented as a scribe. Based on total visit time, I have performed more than 50% of the visit. Objective - Vital Signs Vital signs: Vital Signs Temp 98.7 F 10/28/24 08:00 Pulse 88 10/28/24 08:00 Resp 18 10/28/24 08:00 BP 139/63 10/28/24 08:00 Pulse Ox 93 L 10/28/24 08:13 FiO2 Intake & Output 10/27/24 10/28/24 10/28/24 18:59 06:59 18:59 Intake Total 106 Output Total 760 1000 Balance -654 -1000 Weight 48.988 kg Intake: Oral 106 Output: Urine 760 1000 Other: Voiding Method Indwelling Catheter Indwelling Catheter - Labs CBC & Chem 7: 10/28/24 07:40 10/29/24 07:09 Labs: Abnormal Lab Results - Last 24 Hours (Table) 10/27/24 10/28/24 Range/Units 14:36 07:40 WBC 11.1 H (3.8-10.6) k/uL RBC 2.67 L (3.80-5.40) m/uL Hgb 7.4 L (11.4-16.0) gm/dL Hct 23.6 L (34.0-46.0) % Neutrophils # 7.8 H (1.3-7.7) k/uL BUN 19 H (7-17) mg/dL
--- NOTE | 2024-10-29 09:59 | P.PN ---
Subjective Progress Note Date: 10/29/24 NAEON. No worsening SOB or CP. No F/C. No cough. No N/V. No abdominal pain. Tolerating diet without issue. Objective - Vital Signs Vital signs: Vital Signs Temp 98.1 F 10/29/24 08:00 Pulse 64 10/29/24 08:00 Resp 16 10/29/24 08:00 BP 156/67 10/29/24 08:00 Pulse Ox 91 L 10/29/24 01:00 FiO2 Intake & Output 10/28/24 10/29/24 10/29/24 18:59 06:59 18:59 Intake Total 120 600 Output Total 700 575 Balance -580 25 Weight 50.5 kg Intake: IV 600 Sodium Chloride 0.9% 1, 600 000 ml @ 75 mls/hr IV . [id number] [facility] Rx#:[id number] Oral 120 Output: Urine 700 575 Other: Voiding Method Indwelling Catheter Indwelling Catheter - Exam Gen: AxO, NAD Pulm: non-labored respirations on 2L NC Chest; tender to palpation over right hemithorax. Minimal echymosis appreciated. Abd: soft, non-tender, non-distended. No guarding/rebound/rigidity Extrem: no edema seen - Labs CBC & Chem 7: 10/28/24 07:40 10/29/24 07:09 Labs: Abnormal Lab Results - Last 24 Hours (Table) 10/29/24 Range/Units 07:09 Chloride 108 H (98-107) mmol/L Calcium 8.3 L (8.4-10.2) mg/dL Total Protein 5.0 L (6.3-8.2) g/dL Albumin 2.6 L (3.5-5.0) g/dL Assessment and Plan Assessment: Patient is a 79 year old female who is s/p fall with right sided pneumothorax currently being treated conservatively Plan: -AM CXR reviewed: no worsening PTX -Continue supplemental O2 as needed; wean as tolerated -PRN pain and nausea control -OOB/ PT/OT -CM/SW for placement -No acute surgical intervention Eduardo Pack M.D. General Surgery
[2024-10-29 11:07] LABS: Basophils % (A) 0 %; Eosinophils # (A) 0.3 k/uL (0-0.7); Eosinophils % (A) 3 %; HCT 27.8 % (34.0-46.0); HGB 8.6 gm/dL (11.4-16.0); Hypochromasia Marked; Lymphocytes % (A) 20 %; MCH 27.3 pg (25.0-35.0); MCHC 30.8 g/dL (31.0-37.0); MCV 88.7 fL (80.0-100.0); Monocytes # (A) 0.6 k/uL (0-1.0); Monocytes % (A) 6 %; Neutrophils % (A) 70 %; Platelet Count 444 k/uL (150-450); RBC 3.14 m/uL (3.80-5.40); RDW 14.9 % (11.5-15.5)
--- NOTE | 2024-10-29 12:52 | P.PN ---
Subjective Progress Note Date: 10/29/24 Patient is a 79-year-old female with past medical history significant for hypertension, hyperlipidemia, hypothyroidism. Patient originally presented to [facility] after experiencing multiple falls at home. Found to have acute right-sided rib fractures and small pneumothorax. She was transferred to our facility. Patient is currently being evaluated in the emergency department.She is a poor historian. She is awake and alert. She is on 2 L/min nasal cannula. SpO2 is 92%. Right lateral chest is tender to palpation. No crepitus or subcutaneous emphysema. Equal lung sounds. She does have significant edema and trauma to her right lower extremity. Moving all 4 extremities without significant limitation or discomfort. She states over the last week or so she has had lightheadedness on standing. Multiple falls. States that she is supposed to be walking with a walker, but does not. Denies any head trauma. Denies anticoagulant use. Denies losing consciousness, seizur es, heart palpitations, chest pain. CT scan of chest demonstrating acute nondisplaced rib fractures of right ribs 4 and 5. Small 10% right basilar pneumothorax. Also, right basilar effusion, likely hemothorax in the setting of trauma. CBC: WC count 12.2, hemoglobin 7.9, hematocrit 24.2, platelets 379. Coagulation profile includes a PT of 10, INR of 0.9, APTT 18.6. CMP: Sodium 140, potassium 3.7, chloride 104, serum bicarb 27, BUN 32, creatinine 0.68, glucose 106. Lactic 1.8. LFTs u mildly elevated. Normal saline infusing at 75 mL/h. Current vitals: Heart rate 81 bpm, blood pressure 120/58, SpO2 94% on 2 L/min nasal cannula. Nontachypneic. No respiratory distress noted. Incentive spirometer at bedside. Pain is reportedly well-controlled. As needed analgesics ordered. 10/28/2024, the patient is clinically stable and still on 2 L of oxygen by nasal cannula. No interval worsening shortness of breath. Pain is under adequate control. Repeat chest x-ray was done this morning and there is no evidence of any pneumothorax. There is elevated right hemidiaphragm and multiple right-sided rib fractures and possibly development of right-sided pleural effusion which seems to be small at this point in time. Hemoglobin stable at 7.4, white second 11.1 and the platelet count is at 111. Rest of the electrolytes are all within normal limits. The patient has adequate pain control and she is using the incentive spirometer. She is also on normal saline at rate of 75 cc an hour. Rest of the medications will be resumed from home. On 10/29/2024, the patient complaining of some shortness of breath and pain along the right lateral chest area. Chest x-ray shows further opacification of the right lung and development of right-sided pleural effusion. She remains on 2 L of oxygen by nasal cannula. Pulse ox is 96%. She is afebrile. Hemoglobin is at 8.6 with a white cell count of 10 and a platelet count of 444. Electrolytes are all stable. Based on that, bedside thoracentesis was done a total of 5 images of pleural fluid that was serosanguineous/bloody was aspirated from the right lung without any complication. Subsequent chest x-ray is pending. Continue to use the incentive spirometer. Objective - Vital Signs Vital signs: Vital Signs Temp 98.1 F 10/29/24 08:00 Pulse 64 10/29/24 08:00 Resp 16 10/29/24 08:00 BP 156/67 10/29/24 08:00 Pulse Ox 91 L 10/29/24 01:00 FiO2 Intake & Output 10/28/24 10/29/24 10/29/24 18:59 06:59 18:59 Intake Total 120 600 Output Total 700 575 Balance -580 25 Weight 50.5 kg Intake: IV 600 Sodium Chloride 0.9% 1, 600 000 ml @ 75 mls/hr IV . [id number] [facility] Rx#:[id number] Oral 120 Output: Urine 700 575 Other: Voiding Method Indwelling Catheter Indwelling Catheter - Exam GENERAL EXAM: Alert, 79-year-old female, on 2 L/min nasal cannula, SpO2 92%, in no respiratory distress. HEAD: Normocephalic and atraumatic EYES: Normal reaction of pupils, equal size. NOSE: Clear with pink turbinates. THROAT: No erythema or exudates. NECK: No masses, no JVD. CHEST: Tender right lateral chest. No subcutaneous emphysema or crepitus. LUNGS: Equal air entry with diminished right basilar lung sounds. Equal chest excursion. No conversational dyspnea or accessory muscle use.. CVS: S1 and S2 normal with soft systolic murmur, regular rhythm. No extra heart sounds ABDOMEN: No hepatosplenomegaly, active bowel sounds, no guarding or rigidity. SPINE: No scoliosis or deformity SKIN: No rashes CENTRAL NERVOUS SYSTEM: No focal deficits, tone is normal in all 4 extremities. EXTREMITIES: Traumatic right lower extremity with bruising and edema. Peripheral pulses are intact. Neurovascular status intact. - Labs CBC & Chem 7: 10/29/24 10:54 10/29/24 07:09 Labs: Abnormal Lab Results - Last 24 Hours (Table) 10/29/24 Range/Units 07:09 Chloride 108 H (98-107) mmol/L Calcium 8.3 L (8.4-10.2) mg/dL Total Protein 5.0 L (6.3-8.2) g/dL Albumin 2.6 L (3.5-5.0) g/dL Assessment and Plan Assessment: Traumatic right-sided hydropneumothorax, CT scan of chest demonstrating acute nondisplaced rib fractures of right ribs 4 and 5. Small 10% right basilar pneumothorax. Also, right basilar effusion, likely hemothorax in the setting of trauma. Right-sided pleural effusion, s/p thoracentesis with evacuation of 500 cc of pleural fluid, serosanguineous/bloody Acute hypoxemic respiratory failure, currently on 2 L/min nasal cannula, secondary to above Traumatic fall History of gait disturbance and frequent falls, reportedly supposed to ambulate with walker Chronic anemia with a stable hemoglobin History of hypertension History of hyperlipidemia History of hypothyroidism Former tobacco smoker, quit over 3 years ago Plan: Right-sided thoracentesis was done Obtain a follow-up chest x-ray Hemoglobin is stable Oxygenation stable and the patient remains on 2 L of oxygen by nasal cannula Adequate pain control cardiothoracic surgery is on the case Normal saline to KVO Encourage ambulation and incentive spirometer Will follow
--- NOTE | 2024-10-29 12:53 | P.PCN ---
Date of Procedure: 10/29/24 Preoperative Diagnosis: Pleural effusion, right Postoperative Diagnosis: Pleural effusion, right Procedure(s) Performed: Thoracentesis, right Anesthesia: local Surgeon: Amalia Pandey Estimated Blood Loss (ml): 0 Pathology: other Condition: stable Disposition: floor Operative Findings: A time out was performed and the chest x-ray was reviewed, the appropriate side was confirmed and marked. My hands were washed immediately prior to the procedure. I wore a surgical cap, mask with protective eyewear, sterile gown and sterile gloves throughout the procedure. The patient was prepped and draped in a sterile manner using chlorhexidine scrub after the appropriate level was percu ssed and confirmed by ultrasound. 1% lidocaine was used to anesthesize the skin, subcutaneous tissue, superior aspect of the rib periosteum and parietal pleura. A finder needle was then introduced over the superior aspect of the rib to locate the pleural fluid; 2colored fluid was aspirated at a depth of approximately 2 cm. A 10-blade scalpel was used to janet the skin at the insertion site. The [id number] needle was then introduced through the skin incision into the pleural space using negative aspiration pressure and the red colometric indicator to confirm appropriate positioning of the needle. The thoracentesis catheter was then threaded without difficulty. 500 ml of serosanguineous/blood-tinged fluid was removed without difficulty. The catheter was then removed. No immediate complications were noted during the procedure. A post-procedure chest x-ray is pending at the time of this note. The fluid will be sent for studies. Estimated blood loss is 0cc
--- NOTE | 2024-10-29 13:14 | XR ---
EXAMINATION TYPE: XR chest 1V DATE OF EXAM: 10/29/2024 1:07 PM COMPARISON: Chest radiographs from 10/29/2024 CLINICAL INDICATION: Female, 79 years old with history of Postthoracentesis; TECHNIQUE: XR chest 1V Frontal view of the chest. FINDINGS: Lungs/Pleura: There is no evidence of pleural effusion, focal consolidation, or pneumothorax. Left i nferior lung calcified granuloma. Pulmonary vascularity: Unremarkable. Heart/mediastinum: Cardiomediastinal silhouette is unremarkable. Musculoskeletal: Multiple age bearing rib fractures the right chest wall and to lesser extent the lef t chest wall. Left clavicle remote fracture. IMPRESSION: Reduction in right pleural effusion, no evidence for pneumothorax Multiple right-sided rib fractures. [facility], , 10/29/2024 1:12 PM
[2024-10-29] MEDS: ACETAMINOPHEN TAB 325 MG TAB PO PRN (20:29)
[2024-10-29 23:31] LABS: Glucose, BF Source Pleural Fluid; Glucose, Body Fluid 93 mg/dL; LDH, Body Fluid Source Pleural Fluid; T. Protein, Body Fluid Source Pleural Fluid; Total Protein, Body Fluid 2880 mg/dL
[2024-10-30 00:36] LABS: Appearance,BF Bloody (Clear)
--- NOTE | 2024-10-30 06:49 | XR ---
EXAMINATION TYPE: XR chest 1V DATE OF EXAM: 10/30/2024 COMPARISON: 10/29/2024 CLINICAL INDICATION: Female, 79 years old with history of ptx; TECHNIQUE: Single frontal view of the chest is obtained. FINDINGS: There is moderate to marked elevation of the right hemidiaphragm. There is a small right pleural effu layne which is stable. There are multiple right rib fractures. There is no pneumothorax. There is mild diffuse interstitial opacity unchanged compared to the prior study. The findings could reflect chronic interstitial changes or pulmonary edema. Heart size normal. The osseous structures are intact. IMPRESSION: Acute cardiopulmonary disease with no interval change. There is no pneumothorax. [facility], , 10/30/2024 6:47 AM
--- NOTE | 2024-10-30 07:56 | P.PN ---
Subjective Progress Note Date: 10/30/24 Principal diagnosis: Right-sided traumatic hemopneumothorax, status post fall from standing, acute anemia. History of multiple falls at home with noncompliance with her walker, hypertension, hyperlipidemia, hypothyroid, right leg wound, previous tobacco dependence POD #1 right sided thoracentesis by Dr. Pandey with removal of 500 mL bloody fluid The patient was seen and examined this morning laying in bed on the medical surgical unit in no acute distress. Yesterday the patient underwent right sided thoracentesis by Dr. Pandey with removal of 500 mL bloody fluid. Her follow- up chest x-ray was improved. She does still have elevated right hemithorax which has been present throughout her admission. Her hemoglobin did improve yesterday, labs pending this morning. The patient is oriented this morning, she knows she is in the hospital and that it is 2023, as well as her admission was due to a fall. She remains hemodynamically stable. She does require signific ant assistance for mobility and recommendations have been made by PT/OT for rehab at discharge. Her pain apparently has been controlled without use of narcotics. No plans for surgical intervention from cardiothoracic surgery standpoint. Objective - Vital Signs Vital signs: Vital Signs Temp 98.8 F 10/30/24 06:56 Pulse 73 10/30/24 06:56 Resp 13 10/30/24 02:00 BP 120/61 10/30/24 06:56 Pulse Ox 97 10/30/24 06:56 FiO2 Intake & Output 10/29/24 10/30/24 10/30/24 18:59 06:59 18:59 Intake Total 518 Output Total 1600 100 Balance -1082 -100 Weight 47.5 kg Intake: IV 160 Sodium Chloride 0.9% 1, 160 000 ml @ 20 mls/hr IV . Q24H [facility] Rx#:[id number] Oral 358 Output: Urine 1600 100 Other: Voiding Method Indwelling Catheter Indwelling Catheter # Bowel Movements 1 - Exam CONSTITUTIONAL: Appears comfortable, cooperative, no acute distress RESPIRATORY: Lungs sounds diminished in the right base. Respirations even, nonlabored. Currently on 3 L nasal cannula with oxygen saturation 96% CARDIOVASCULAR: S1, S2 present. Regular rate and rhythm. Palpable peripheral pulses bilaterally. No edema present GASTROINTESTINAL: Abdomen soft, nontender, nondistended. Active bowel sounds present 4 quadrants. Positive bowel movement 12/21 GENITOURINARY: D[place] Santos present draining clear yellow urine, output 1700 mL in the last 24 hours INTEGUMENTARY: Skin is warm and dry, multiple areas of ecchymosis to her lower extremities NEUROLOGIC: Cranial nerves II through XII intact MUSKULOSKELETAL: Able to move all extremities, strength equal bilaterally PSYCHIATRIC: Alert and oriented to person, place, time - Allied health notes Allied health notes reviewed: nursing - Labs CBC & Chem 7: 10/29/24 10:54 10/29/24 07:09 Labs: Abnormal Lab Results - Last 24 Hours (Table) 10/29/24 10/29/24 10/29/24 Range/Units 07:09 10:54 15:30 RBC 3.14 L (3.80-5.40) m/uL Hgb 8.6 L (11.4-16.0) gm/dL Hct 27.8 L (34.0-46.0) % MCHC 30.8 L (31.0-37.0) g/dL Chloride 108 H (98-107) mmol/L Calcium 8.3 L (8.4-10.2) mg/dL Total Protein 5.0 L (6.3-8.2) g/dL Albumin 2.6 L (3.5-5.0) g/dL Fluid Appearance Bloody A (Clear) Microbiology - Last 24 Hours (Table) 10/29/24 15:30 Gram Stain - Preliminary Pleural Fluid - Imaging and Cardiology Chest x-ray: report reviewed, image reviewed Assessment and Plan Assessment: Right-sided traumatic hemopneumothorax, status post fall from standing Acute anemia, likely blood loss History of multiple falls at home with noncompliance with her walker Hypertension Hyperlipidemia Hypothyroid Right leg wound Previous tobacco dependence Plan: No chest tube placement planned, no surgical intervention warranted Pain control per current medication regimen Increase activity as tolerated, PT/OT following Encourage incentive spirometry use, wean O2 as tolerated Reorient patient as needed Medical management of other comorbidities per internal medicine, pulmonology, trauma services Patient may be discharged from cardiothoracic surgery standpoint when okay with other services
--- NOTE | 2024-10-30 08:16 | P.PN ---
Subjective Progress Note Date: 10/29/24 - Reason for Consult Consult date: 10/27/24 Medical management - Chief Complaint Status post fall - History of Present Illness Patient is a 79 female with a known history of hypertension, hypothyroidism, hyperlipidemia presents to ER status post fall while coming out of the walk-in shower. Patient initially presented to [facility] and was transferred to [facility] for further trauma evaluation. Patient otherwise denied any recent illnesses. No fever no chills. No chest pain or s hortness of breath. Patient had CT head and CT cervical spine showed no acute fracture or dislocatio n. No acute findings noted. CT chest in the ER showed 10% right basilar pneumothorax. Multiple pre dominantly remote right-sided rib fractures are seen. There appears to be acute nondisplaced rib fracture of the right rib 4 and 5. There is evidence of right basilar pleural effusion and hemothorax with compressive atelectasis are continues to change. X-ray of the tibia/fibula showed no acute fracture or dislocation of the right tibia and fibula. Chest x-ray this morning showed no acute cardiopulmonary process. Laboratory data showed WBC 12.2 hemoglobin 7.9 and platelets 379 Sodium 140 potassium 3.7 chloride 104 bicarb is 27 BUN 32 and creatinine 0.68 and blood sugar 108 AST 99 ALT 56 and alk phos 78 total bili 1.2 and albumin 3.1. 10/28/2021 Patient is seen in follow-up today being followed by multiple consultations. No plans for immediate chest tube at this time with pulmonary and CT surgery following recommending follow-up x-rays. No pneumothorax evident on imaging and will hold off on chest tube per CT surgery unless patient clinically becomes more distressed. Patient is currently confused and appears to be sundowning at night and will add Seroquel and recommend limiting narcotic agents if possible. Will have PT/OT therapy evaluate the patient for possible ECF although plan is most likely to return home with family. 10/29/2024 Patient is seen in follow-up today with multiple consultations following including CT surgery and pulmonary. No plans for chest tube at this time and pulmonary planning on thoracentesis and per nursing staff approximately 700 cc removed and was sent for cytology. Noted to be all bloody on exam. Patient is afebrile with no reports of chest pain continues to have some discomfort. Encouraged increase activity as tolerated and will have PT/OT therapy reevaluate. Discussed further with case management regarding discharge planning once cleared by consultations. Continue using Seroquel at night. Review of systems: Constitutional: No reports of fatigue, fever, or chills Cardiovascular: No reports of chest pain or palpitations Respiratory: No reports of shortness of breath or cough, reports rib pain and discomfort when taking deep breaths GI: No reports of nausea, vomiting, or diarrhea : No reports of dysuria or retention Neurovascular: reports of generalized weakness All medications have been reviewed PHYSICAL EXAMINATION: Patient is lying in the bed comfortably, no acute distress, awake alert and oriented x 1-2, baseline, elderly appearing, ill-appearing, thin built.. HEENT: Normocephalic. Neck is supple. Pupils reactive. Nostrils clear. Oral cavity is moist. Neck reveals no JVD, carotid bruits, or thyromegaly. CHEST EXAMINATION: Trachea is central. Symmetrical expansion. Right basilar diminished sounds. Tenderness of the right rib cage. CARDIAC: Normal S1, S2 with no gallops. No murmurs ABDOMEN: Soft. Bowel sounds normal. No organomegaly. No abdominal bruits. Extremities: reveal no edema. Bruising over the right lower extremity no clubbing or cyanosis Neurologically awake, alert, oriented x3 with well-coordinated movements. Diffusely weak Skin: No rash or skin lesions. Psychiatric: Cooperative. Non-suicidal, anxious at times Musculoskeletal: No joint swelling or deformity. Normal range of motion. Assessment: Status post fall with the right side hemopneumothorax and nondisplaced acute rib fractures of the right ribs 4 and 5. Status postthoracentesis with approximately 700 cc removed. Cytology sent and pending Acute hypoxic respiratory failure requiring 2 L oxygen via nasal cannula Remote right-sided rib fractures bilaterally. Status post mechanical fall Gait disturbance and frequent falls with generalized weakness Anemia with hemoglobin 7.9 normocytic. acute blood loss anemia Elevated liver enzymes Hypertension Hypothyroidism Hyperlipidemia Mild protein calorie malnutrition with a BMI of 19.1 Prior history of smoking DVT prophylaxis with SCDs. GI prophylaxis Full code Plan: Patient will be continued on pain management, encourage incentive spirometry. Gentle IV hydration. And will follow-up with repeat labs Patient does have right basilar 10% pneumothorax and right basilar pleural effusion and hemothorax with compressive atelectasis. CT surgery following with no plans for immediate chest tube at this time recommend monitoring closely with repeat chest x-ray and possible repeat CT in the next few days. If patient becomes more compromised then consider chest tube. Pulmonary following as well plans for thoracentesis today which was done with approximately 700 cc removed on the right. Cytology was sent and pending Patient is admitted to trauma surgery and pulmonary along with CT surgery following .. Continue supplemental oxygen. Monitor H&H. Continue with home blood pressure medications and follow-up closely. Repeat CT is ordered for tomorrow per CT surgery Overall prognosis is guarded Thank you kindly for this consultation. We will continue to follow with general surgery during hospitalization The impression and plan of care has been dictated by Anaya Pedraza, Nurse Practitioner as directed. Dr. Sandra MD I have performed a history and examination and MDM of this patient, discussed the same with the dictator, and agree with the dictator's assessment and plan as written ,documented as a scribe. Based on total visit time, I have performed more than 50% of the visit. Objective - Vital Signs Vital signs: Vital Signs Temp 98.1 F 10/29/24 08:00 Pulse 64 10/29/24 08:00 Resp 16 10/29/24 08:00 BP 156/67 10/29/24 08:00 Pulse Ox 91 L 10/29/24 01:00 FiO2 Intake & Output 10/28/24 10/29/24 10/29/24 18:59 06:59 18:59 Intake Total 120 600 Output Total 700 575 Balance -580 25 Weight 50.5 kg Intake: IV 600 Sodium Chloride 0.9% 1, 600 000 ml @ 75 mls/hr IV . [id number] [facility] Rx#:[id number] Oral 120 Output: Urine 700 575 Other: Voiding Method Indwelling Catheter Indwelling Catheter - Labs CBC & Chem 7: 10/29/24 10:54 10/29/24 07:09 Labs: Abnormal Lab Results - Last 24 Hours (Table) 10/28/24 10/29/24 Range/Units 07:40 07:09 WBC 11.1 H (3.8-10.6) k/uL RBC 2.67 L (3.80-5.40) m/uL Hgb 7.4 L (11.4-16.0) gm/dL Hct 23.6 L (34.0-46.0) % Neutrophils # 7.8 H (1.3-7.7) k/uL Chloride 108 H (98-107) mmol/L Calcium 8.3 L (8.4-10.2) mg/dL Total Protein 5.0 L (6.3-8.2) g/dL Albumin 2.6 L (3.5-5.0) g/dL
[2024-10-30 09:22] LABS: Basophils # (A) 0.02 X 10*3/uL (0.00-0.10); Basophils % (A) 0.2 %; Eosinophils # (A) 0.36 X 10*3/uL (0.04-0.35); Eosinophils % (A) 3.6 %; HCT 25.9 % (37.2-46.3); HGB 7.4 g/dL (12.0-15.0); Lymphocytes # (A) 2.23 X 10*3/uL (0.90-5.00); Lymphocytes % (A) 22.1 %; MCH 26.2 pg (27.0-32.0); MCHC 28.6 g/dL (32.0-37.0); MCV 91.8 FL (80.0-97.0); Mean Platelet Volume 10.1 FL (9.5-12.2); Monocytes # (A) 0.82 X 10*3/uL (0.20-1.00); Monocytes % (A) 8.1 %; NRBC Per 100 WBC 0 X 10*3/uL (0.00-0.01); Neutrophils # (A) 6.56 X 10*3/uL (1.80-7.70); Platelet Count 450 X 10*3/uL (140-440); RBC 2.82 X 10*6/uL (4.10-5.20); RDW 15.2 % (11.5-14.5); WBC 10.09 X 10*3/uL (4.50-10.00)
--- NOTE | 2024-10-30 12:51 | P.PN ---
Subjective Progress Note Date: 10/30/24 Patient is a 79-year-old female with past medical history significant for hypertension, hyperlipidemia, hypothyroidism. Patient originally presented to [facility] after experiencing multiple falls at home. Found to have acute right-sided rib fractures and small pneumothorax. She was transferred to our facility. Patient is currently being evaluated in the emergency department.She is a poor historian. She is awake and alert. She is on 2 L/min nasal cannula. SpO2 is 92%. Right lateral chest is tender to palpation. No crepitus or subcutaneous emphysema. Equal lung sounds. She does have significant edema and trauma to her right lower extremity. Moving all 4 extremities without significant limitation or discomfort. She states over the last week or so she has had lightheadedness on standing. Multiple falls. States that she is supposed to be walking with a walker, but does not. Denies any head trauma. Denies anticoagulant use. Denies losing consciousness, seizur es, heart palpitations, chest pain. CT scan of chest demonstrating acute nondisplaced rib fractures of right ribs 4 and 5. Small 10% right basilar pneumothorax. Also, right basilar effusion, likely hemothorax in the setting of trauma. CBC: WC count 12.2, hemoglobin 7.9, hematocrit 24.2, platelets 379. Coagulation profile includes a PT of 10, INR of 0.9, APTT 18.6. CMP: Sodium 140, potassium 3.7, chloride 104, serum bicarb 27, BUN 32, creatinine 0.68, glucose 106. Lactic 1.8. LFTs u mildly elevated. Normal saline infusing at 75 mL/h. Current vitals: Heart rate 81 bpm, blood pressure 120/58, SpO2 94% on 2 L/min nasal cannula. Nontachypneic. No respiratory distress noted. Incentive spirometer at bedside. Pain is reportedly well-controlled. As needed analgesics ordered. 10/28/2024, the patient is clinically stable and still on 2 L of oxygen by nasal cannula. No interval worsening shortness of breath. Pain is under adequate control. Repeat chest x-ray was done this morning and there is no evidence of any pneumothorax. There is elevated right hemidiaphragm and multiple right-sided rib fractures and possibly development of right-sided pleural effusion which seems to be small at this point in time. Hemoglobin stable at 7.4, white second 11.1 and the platelet count is at 111. Rest of the electrolytes are all within normal limits. The patient has adequate pain control and she is using the incentive spirometer. She is also on normal saline at rate of 75 cc an hour. Rest of the medications will be resumed from home. On 10/29/2024, the patient complaining of some shortness of breath and pain along the right lateral chest area. Chest x-ray shows further opacification of the right lung and development of right-sided pleural effusion. She remains on 2 L of oxygen by nasal cannula. Pulse ox is 96%. She is afebrile. Hemoglobin is at 8.6 with a white cell count of 10 and a platelet count of 444. Electrolytes are all stable. Based on that, bedside thoracentesis was done a total of 5 images of pleural fluid that was serosanguineous/bloody was aspirated from the right lung without any complication. Subsequent chest x-ray is pending. Continue to use the incentive spirometer. On 10/30/2024, the patient is stable. No significant pain in her chest and the patient is on 3 L of oxygen by nasal cannula with a pulse ox of 95%. Thoracentesis was done yesterday with good results. Total of 500 cc of pleural fluid was aspirated from the right lung and the chest x-ray from today shows improved and there is some persistent elevation of the right hemidiaphragm. Right side rib fractures also noted. Otherwise, the patient is doing well. Hemodynamically stable. She requires assistance for mobility. Pain is under adequate control for now. WBC count is 18 with a hemoglobin 7.4 and a platelet count of 450. Objective - Vital Signs Vital signs: Vital Signs Temp 98.8 F 10/30/24 06:56 Pulse 73 10/30/24 06:56 Resp 13 10/30/24 02:00 BP 120/61 10/30/24 06:56 Pulse Ox 97 10/30/24 06:56 FiO2 Intake & Output 10/29/24 10/30/24 10/30/24 18:59 06:59 18:59 Intake Total 518 Output Total 1600 100 Balance -1082 -100 Weight 47.5 kg Intake: IV 160 Sodium Chloride 0.9% 1, 160 000 ml @ 20 mls/hr IV . Q24H [facility] Rx#:[id number] Oral 358 Output: Urine 1600 100 Other: Voiding Method Indwelling Catheter Indwelling Catheter Indwelling Catheter # Bowel Movements 1 - Exam GENERAL EXAM: Alert, 79-year-old female, on 2 L/min nasal cannula, SpO2 92%, in no respiratory distress. HEAD: Normocephalic and atraumatic EYES: Normal reaction of pupils, equal size. NOSE: Clear with pink turbinates. THROAT: No erythema or exudates. NECK: No masses, no JVD. CHEST: Tender right lateral chest. No subcutaneous emphysema or crepitus. LUNGS: Equal air entry with diminished right basilar lung sounds. Equal chest excursion. No conversational dyspnea or accessory muscle use.. CVS: S1 and S2 normal with soft systolic murmur, regular rhythm. No extra heart sounds ABDOMEN: No hepatosplenomegaly, active bowel sounds, no guarding or rigidity. SPINE: No scoliosis or deformity SKIN: No rashes CENTRAL NERVOUS SYSTEM: No focal deficits, tone is normal in all 4 extremities. EXTREMITIES: Traumatic right lower extremity with bruising and edema. Peripheral pulses are intact. Neurovascular status intact. - Labs CBC & Chem 7: 10/30/24 05:35 10/29/24 07:09 Labs: Abnormal Lab Results - Last 24 Hours (Table) 10/29/24 10/29/24 10/30/24 Range/Units 10:54 15:30 05:35 WBC 10.09 H (4.50-10.00) X 10*3/uL RBC 3.14 L 2.82 L (3.80-5.40) m/uL Hgb 8.6 L 7.4 L (11.4-16.0) gm/dL Hct 27.8 L 25.9 L (34.0-46.0) % MCH 26.2 L (27.0-32.0) pg MCHC 30.8 L 28.6 L (31.0-37.0) g/dL RDW 15.2 H (11.5-14.5) % Plt Count 450 H (140-440) X 10*3/uL Immature Gran # 0.10 H (0.00-0.04) X 10*3/uL Eosinophils # 0.36 H (0.04-0.35) X 10*3/uL Fluid Appearance Bloody A (Clear) Microbiology - Last 24 Hours (Table) 10/29/24 15:30 Gram Stain - Preliminary Pleural Fluid Assessment and Plan Assessment: Traumatic right-sided hydropneumothorax, CT scan of chest demonstrating acute nondisplaced rib fractures of right ribs 4 and 5. Small 10% right basilar pneumothorax. Also, right basilar effusion, likely hemothorax in the setting of trauma. The patient underwent a thoracentesis and a total of 500 cc of pleural fluid was aspirated from the right lung. No residual effusion. No residual pneumothorax. Right-sided pleural effusion, s/p thoracentesis with evacuation of 500 cc of pleural fluid, serosanguineous/bloody Acute hypoxemic respiratory failure, currently on 2 L/min nasal cannula, secondary to above Traumatic fall History of gait disturbance and frequent falls, reportedly supposed to ambulate with walker Chronic anemia with a stable hemoglobin History of hypertension History of hyperlipidemia History of hypothyroidism Former tobacco smoker, quit over 3 years ago Plan: Right-sided thoracentesis was done on 10/30/2024 Follow-up chest x-ray is adequate without any residual effusion or pneumothorax Monitor hemoglobin Oxygenation stable and the patient remains on 2 L of oxygen by nasal cannula Adequate pain control cardiothoracic surgery is on the case Normal saline to KVO Encourage ambulation and incentive spirometer Will follow
--- NOTE | 2024-10-30 15:08 | P.PN ---
Subjective Progress Note Date: 10/30/24 CHIEF COMPLAINT: Status post fall with rib fractures HISTORY OF PRESENT ILLNESS: The patient is a 79-year-old female admitted for status post fall with rib fracture and pleural effusion. She is status post thoracocentesis yesterday 1221. She reports appropriate shortness. Her family is at bedside. She denies any moderate shortness of breath. ROS: No reports of nausea and vomiting. No fevers or chills. PHYSICAL EXAM: VITAL SIGNS: Reviewed CONSTITUTIONAL: Well developed and in no acute distress. EYES: Conjuctivae without sclera icterus. Extraocular movements grossly intact. HEAD, EARS, NOSE, THROAT: Moist buccal mucosa. Head is atraumatic, normocephalic. Hears conversational speech. No nasal drainage. RESPIRATORY: Non-labored respirations and equal bilateral excursions. Appropriate rib sided tenderness. CARDIOVASCULAR: Palpable 2+ radial pulses. ABDOMEN: Nontender. MUSCULOSKELETAL: No gross deformity of the lower extremities noted. No clubbing. No cyanosis. SKIN: Good skin turgor. Well perfused. NEUROLOGIC: Cranial nerves II through XII grossly intact. No focal or la teralizing signs. PSYCH: Appropriate affect. Alert and oriented to person, place and time. CLINICAL LABS: Reviewed. WBC mildly elevated over 10.0. ASSESSMENT: 1. Status post fall 2. Traumatic right rib fractures 3. Right pleural effusion PLAN: 1. Will adjust pain medication to include nonnarcotic scheduled pain meds for rib fractures 2. Placement pending assessment for rehab. Objective - Vital Signs Vital signs: Vital Signs Temp 98.8 F 10/30/24 06:56 Pulse 73 10/30/24 06:56 Resp 13 10/30/24 02:00 BP 120/61 10/30/24 06:56 Pulse Ox 97 10/30/24 06:56 FiO2 Intake & Output 10/29/24 10/30/24 10/30/24 18:59 06:59 18:59 Intake Total 518 Output Total 1600 100 Balance -1082 -100 Weight 47.5 kg Intake: IV 160 Sodium Chloride 0.9% 1, 160 000 ml @ 20 mls/hr IV . Q24H [facility] Rx#:[id number] Oral 358 Output: Urine 1600 100 Other: Voiding Method Indwelling Catheter Indwelling Catheter Indwelling Catheter # Bowel Movements 1 - Labs CBC & Chem 7: 10/30/24 05:35 10/29/24 07:09 Labs: Abnormal Lab Results - Last 24 Hours (Table) 10/29/24 10/30/24 Range/Units 15:30 05:35 WBC 10.09 H (4.50-10.00) X 10*3/uL RBC 2.82 L (4.10-5.20) X 10*6/uL Hgb 7.4 L (12.0-15.0) g/dL Hct 25.9 L (37.2-46.3) % MCH 26.2 L (27.0-32.0) pg MCHC 28.6 L (32.0-37.0) g/dL RDW 15.2 H (11.5-14.5) % Plt Count 450 H (140-440) X 10*3/uL Immature Gran # 0.10 H (0.00-0.04) X 10*3/uL Eosinophils # 0.36 H (0.04-0.35) X 10*3/uL Fluid Appearance Bloody A (Clear) Microbiology - Last 24 Hours (Table) 10/29/24 15:30 Gram Stain - Preliminary Pleural Fluid
[2024-10-30] MEDS: KETOROLAC 15 MG/ML 1 ML VIAL IVP SCH (15:36)
[2024-10-30] MEDS: ACETAMINOPHEN IV (For NPO) 650 MG in EMPTY BAG 1 BAG IVPB SCH (15:37)
--- NOTE | 2024-10-30 20:19 | P.PN ---
Subjective Progress Note Date: 10/30/24 - Reason for Consult Consult date: 10/27/24 Medical management - Chief Complaint Status post fall - History of Present Illness Patient is a 79 female with a known history of hypertension, hypothyroidism, hyperlipidemia presents to ER status post fall while coming out of the walk-in shower. Patient initially presented to [facility] and was transferred to [facility] for further trauma evaluation. Patient otherwise denied any recent illnesses. No fever no chills. No chest pain or s hortness of breath. Patient had CT head and CT cervical spine showed no acute fracture or dislocatio n. No acute findings noted. CT chest in the ER showed 10% right basilar pneumothorax. Multiple pre dominantly remote right-sided rib fractures are seen. There appears to be acute nondisplaced rib fracture of the right rib 4 and 5. There is evidence of right basilar pleural effusion and hemothorax with compressive atelectasis are continues to change. X-ray of the tibia/fibula showed no acute fracture or dislocation of the right tibia and fibula. Chest x-ray this morning showed no acute cardiopulmonary process. Laboratory data showed WBC 12.2 hemoglobin 7.9 and platelets 379 Sodium 140 potassium 3.7 chloride 104 bicarb is 27 BUN 32 and creatinine 0.68 and blood sugar 108 AST 99 ALT 56 and alk phos 78 total bili 1.2 and albumin 3.1. 10/28/2021 Patient is seen in follow-up today being followed by multiple consultations. No plans for immediate chest tube at this time with pulmonary and CT surgery following recommending follow-up x-rays. No pneumothorax evident on imaging and will hold off on chest tube per CT surgery unless patient clinically becomes more distressed. Patient is currently confused and appears to be sundowning at night and will add Seroquel and recommend limiting narcotic agents if possible. Will have PT/OT therapy evaluate the patient for possible ECF although plan is most likely to return home with family. 10/29/2024 Patient is seen in follow-up today with multiple consultations following including CT surgery and pulmonary. No plans for chest tube at this time and pulmonary planning on thoracentesis and per nursing staff approximately 700 cc removed and was sent for cytology. Noted to be all bloody on exam. Patient is afebrile with no reports of chest pain continues to have some discomfort. Encouraged increase activity as tolerated and will have PT/OT therapy reevaluate. Discussed further with case management regarding discharge planning once cleared by consultations. Continue using Seroquel at night. 10/30/2024 Patient is seen in follow-up status post thoracentesis and fluid culture thus far negative, cytology is pending with CT surgery and pulmonary following. Will follow-up with case management regarding discharge planning as patient wants to return home although is significantly weak and would likely benefit from ECF on discharge. Will have PT/OT therapy reevaluate in the a.m. Follow-up chest x- ray in a.m. as well. Review of systems: Constitutional: No reports of fatigue, fever, or chills Cardiovascular: No reports of chest pain or palpitations Respiratory: No reports of shortness of breath or cough, reports less rib pain and discomfort when taking deep breaths GI: No reports of nausea, vomiting, or diarrhea : No reports of dysuria or retention Neurovascular: reports of generalized weakness All medications have been reviewed PHYSICAL EXAMINATION: Patient is lying in the bed comfortably, no acute distress, awake alert and oriented x 1-2, baseline, elderly appearing, ill-appearing, thin built.. HEENT: Normocephalic. Neck is supple. Pupils reactive. Nostrils clear. Oral cavity is moist. Neck reveals no JVD, carotid bruits, or thyromegaly. CHEST EXAMINATION: Trachea is central. Symmetrical expansion. Right basilar diminished sounds. Tenderness of the right rib cage. CARDIAC: Normal S1, S2 with no gallops. No murmurs ABDOMEN: Soft. Bowel sounds normal. No organomegaly. No abdominal bruits. Extremities: reveal no edema. Bruising over the right lower extremity no clubbing or cyanosis Neurologically awake, alert, oriented x3 with well-coordinated movements. Diffusely weak Skin: No rash or skin lesions. Psychiatric: Cooperative. Non-suicidal, anxious at times Musculoskeletal: No joint swelling or deformity. Normal range of motion. Assessment: Status post fall with the right side hemopneumothorax and nondisplaced acute rib fractures of the right ribs 4 and 5. Status postthoracentesis with approximately 700 cc removed. Cytology sent and pending Acute hypoxic respiratory failure requiring 2 L oxygen via nasal cannula Remote right-sided rib fractures bilaterally. Status post mechanical fall Gait disturbance and frequent falls with generalized weakness Anemia with hemoglobin 7.9 normocytic. acute blood loss anemia Elevated liver enzymes Hypertension Hypothyroidism Hyperlipidemia Mild protein calorie malnutrition with a BMI of 19.1 Prior history of smoking DVT prophylaxis with SCDs. GI prophylaxis Full code Plan: Patient will be continued on pain management, encourage incentive spirometry. Patient needs reinforcement on use of incentive spirometer and how to properly use Patient is status post thoracentesis on the right and awaiting cytology with pulmonary and CT surgery following Encourage incentive spirometer use at least 10 times every hour while awake and sitting up. Wean FiO2 as tolerated Will have PT/OT therapy evaluate the patient for possible ECF as she would benefit as she is significantly weak requiring two-person assist. Patient does want to return home with her family Continue Seroquel at night Overall prognosis is guarded Thank you kindly for this consultation. We will continue to follow with general surgery during hospitalization The impression and plan of care has been dictated by Anaya Pedraza, Nurse Practitioner as directed. Dr. Sandra MD I have performed a history and examination and MDM of this patient, discussed the same with the dictator, and agree with the dictator's assessment and plan as written ,documented as a scribe. Based on total visit time, I have performed more than 50% of the visit. Objective - Vital Signs Vital signs: Vital Signs Temp 98.8 F 10/30/24 06:56 Pulse 73 10/30/24 06:56 Resp 13 10/30/24 02:00 BP 120/61 10/30/24 06:56 Pulse Ox 97 10/30/24 06:56 FiO2 Intake & Output 10/29/24 10/30/24 10/30/24 18:59 06:59 18:59 Intake Total 518 Output Total 1600 100 Balance -1082 -100 Weight 47.5 kg Intake: IV 160 Sodium Chloride 0.9% 1, 160 000 ml @ 20 mls/hr IV . Q24H EDE Rx#:[id number] Oral 358 Output: Urine 1600 100 Other: Voiding Method Indwelling Catheter Indwelling Catheter # Bowel Movements 1 - Labs CBC & Chem 7: 10/30/24 05:35 10/29/24 07:09 Labs: Abnormal Lab Results - Last 24 Hours (Table) 10/29/24 10/29/24 10/29/24 Range/Units 07:09 10:54 15:30 RBC 3.14 L (3.80-5.40) m/uL Hgb 8.6 L (11.4-16.0) gm/dL Hct 27.8 L (34.0-46.0) % MCHC 30.8 L (31.0-37.0) g/dL Chloride 108 H (98-107) mmol/L Calcium 8.3 L (8.4-10.2) mg/dL Total Protein 5.0 L (6.3-8.2) g/dL Albumin 2.6 L (3.5-5.0) g/dL Fluid Appearance Bloody A (Clear) Microbiology - Last 24 Hours (Table) 10/29/24 15:30 Gram Stain - Preliminary Pleural Fluid
[2024-10-31 03:04] VITALS: RESP 16
[2024-10-31 07:20] VITALS: BP 105/59; PULSE 68; TEMP 98
--- NOTE | 2024-10-31 11:01 | P.PN ---
Subjective Progress Note Date: 10/31/24 SURGICAL PROGRESS NOTE CHIEF COMPLAINT: Fall HISTORY OF PRESENT ILLNESS: Patient lying in bed comfortably. She reports her pain is controlled. She does have a bedside sitter. Patient is status post rig ht sided thoracentesis with 500 mL removed on 10/29/2024. She is on 3 L of oxygen. Patient denies any shortness of breath. She is tolerating diet. Afebrile. WBC is 10 Hgb 7.4 platelets 450 PHYSICAL EXAM: VITAL SIGNS: Reviewed. GENERAL: Well-developed in no acute distress. ABDOMEN: Soft. Nondistended. Nontender. NEUROLOGIC: Awake and alert. Extremities: able to move all 4 extremities. Right leg with extensive old bruising. ASSESSMENT: 1. Falls with traumatic right-sided hemopneumothorax and nondisplaced rib fractures of right ribs 4 and 5. Status post thoracentesis 2. Frequent falls 3. Anemia, possibly acute blood loss anemia. 4. Bruising of the right leg. No fracture on imaging PLAN: -Continue pain management -enterprise project manager working on possible discharge to ECF when cleared by consultants -Encouraged incentive spirometer use -DVT prophylaxis SCDs Physician Machine I Trimmer note has been reviewed by physician. Signing provider agrees with the documented findings, assessment, and plan of care. Objective - Vital Signs Vital signs: Vital Signs Temp 98.0 F 10/31/24 06:53 Pulse 68 10/31/24 06:53 Resp 16 10/31/24 06:53 BP 105/59 10/31/24 06:53 Pulse Ox 95 10/31/24 06:53 FiO2 Intake & Output 10/30/24 10/31/24 10/31/24 18:59 06:59 18:59 Output Total 1575 500 Balance -1575 -500 Weight 47 kg Output: Urine 1575 500 Stool 0 Other: Voiding Method Indwelling Catheter - Labs CBC & Chem 7: 10/30/24 05:35 10/29/24 07:09 Labs: Microbiology - Last 24 Hours (Table) 10/29/24 15:30 Gram Stain - Preliminary Pleural Fluid Body Fluid Culture - Preliminary
--- NOTE | 2024-10-31 12:54 | P.DS ---
Providers Date of admission: 10/26/24 22:53 Expected date of discharge: 10/31/24 Attending physician: Hans Paniagua Consults: 10/26/24 22:48 Consult Physician Routine Consulting Provider: Amalia Pandey Consult Reason/Comments: Hemopneumothorax Do you want consulting provider notified?: Yes 10/26/24 22:58 Consult Physician Routine Consulting Provider: [facility] Consult Reason/Comments: Pulmonary Contusion Do you want consulting provider notified?: Yes Consult Physician Routine Consulting Provider: Garland Mojica Consult Reason/Comments: rib fractures. Hemopneumothorax Do you want consulting provider notified?: Yes Consult Physician Routine Consulting Provider: Chang Wiley Consult Reason/Comments: medical management Do you want consulting provider notified?: Yes Primary care physician: Avtar Flores [facility] Course: Discharge diagnosis 1. Falls with traumatic right-sided hemopneumothorax and nondisplaced rib fractures of right ribs 4 and 5. 2. Right pleural effusion likely hemothorax status post thoracentesis 3. Frequent falls 4. Anemia, possibly acute blood loss anemia. 5. Bruising of the right leg. No fracture on imaging Hospital course This is a 79-year-old female who was a transfer from [facility]. Patient has had multiple recent falls and had been complaining of lightheadedness. She was found to have a right fourth and fifth rib fracture with a right sided pneumothorax. Patient was transferred to [facility] for further evaluation. CT scan of the brain at [place] and C-spine were negative for acute findings. No evidence of bleed no evidence of fracture. Patient did have a CT scan of the chest here that reported a 10% right basilar pneumothorax. Multiple predominantly remote right-sided rib fractures. Acute nondisplaced rib fracture of the right rib fourth and fifth. Evidence of right basilar pleural effusion and/or hemothorax with compressive atelectasis or cont usive changes. Patient is followed by pulmonary service and cardiothoracic service. X-ray of the right femur and tibia-fibula shows no evidence of acute fracture. Patient did have a right to thoracentesis for her right pleural effusion likely hemothorax by pulmonary service. Patient evaluated by pulmonary service and they have cleared her for discharge. Patient has been cleared by all consultants for discharge. She has worked with physical therapy they are recommending rehab at discharge. She does have placement at an ECF facility. Patient is stable for discharge to rehab. Her pain is controlled. She has been up and ambulating. She is tolerating diet. She is afebrile. Please refer to chart for any further details. Physician Rebrander note has been reviewed by physician. Signing provider agrees with the documented findings, assessment, and plan of care. Patient Condition at Discharge: Stable Plan - Discharge Summary New Discharge Prescriptions: New Acetaminophen Tab [Tylenol Tab] 650 mg PO Q4H PRN #30 tablet PRN Reason: Pain Ibuprofen [Motrin] 600 mg PO Q8HR PRN #30 tab PRN Reason: Pain Continue lisinopriL [Prinivil] 20 mg PO DAILY amLODIPine [Norvasc] 10 mg PO DAILY Cholecalciferol [Vitamin D3 (125 Mcg = 5000 Iu)] 125 mcg PO DAILY Alendronate Sodium [Fosamax] 70 mg PO WEEKLY Triamcinolone 0.1% Cream [Kenalog 0.1% Cream] 1 applic TOPICAL BID PRN PRN Reason: Itching Rosuvastatin [Crestor] 10 mg PO DAILY Charles Natural Red Yeast Rice 1200-600mg Cap 1 cap PO DAILY Levothyroxine Sodium [Synthroid] 50 mcg PO DAILY Ammonium Lactate Cream [Lac-Hydrin 12% Cream] 1 applic TOPICAL BID PRN PRN Reason: Dry Skin Discharge Medication List lisinopriL [Prinivil] 20 mg PO DAILY 05/01/15 [History] Alendronate Sodium [Fosamax] 70 mg PO WEEKLY 10/26/24 [History] Ammonium Lactate Cream [Lac-Hydrin 12% Cream] 1 applic TOPICAL BID PRN 10/26/24 [History] Cholecalciferol [Vitamin D3 (125 Mcg = 5000 Iu)] 125 mcg PO DAILY 10/26/24 [History] Levothyroxine Sodium [Synthroid] 50 mcg PO DAILY 10/26/24 [History] Charles Natural Red Yeast Rice 1200-600mg Cap 1 cap PO DAILY 10/26/24 [History] Rosuvastatin [Crestor] 10 mg PO DAILY 10/26/24 [History] Triamcinolone 0.1% Cream [Kenalog 0.1% Cream] 1 applic TOPICAL BID PRN 10/26/24 [History] amLODIPine [Norvasc] 10 mg PO DAILY 10/26/24 [History] Acetaminophen Tab [Tylenol Tab] 650 mg PO Q4H PRN #30 tablet 10/31/24 [Rx] Ibuprofen [Motrin] 600 mg PO Q8HR PRN #30 tab 10/31/24 [Rx] Follow up Appointment(s)/Referral(s): Avtar Flores [Primary Care Provider] - 1-2 days Amalia Pandey MD [STAFF PHYSICIAN] - 1 Week Discharge Disposition: TRANSFER TO SNF/ECF
[2024-10-31 13:23] VITALS: BMI 17.7
--- NOTE | 2024-10-31 13:34 | P.PN ---
Subjective Progress Note Date: 10/31/24 Patient is a 79-year-old female with past medical history significant for hypertension, hyperlipidemia, hypothyroidism. Patient originally presented to [facility] after experiencing multiple falls at home. Found to have acute right-sided rib fractures and small pneumothorax. She was transferred to our facility. Patient is currently being evaluated in the emergency department.She is a poor historian. She is awake and alert. She is on 2 L/min nasal cannula. SpO2 is 92%. Right lateral chest is tender to palpation. No crepitus or subcutaneous emphysema. Equal lung sounds. She does have significant edema and trauma to her right lower extremity. Moving all 4 extremities without significant limitation or discomfort. She states over the last week or so she has had lightheadedness on standing. Multiple falls. States that she is supposed to be walking with a walker, but does not. Denies any head trauma. Denies anticoagulant use. Denies losing consciousness, seizures, heart palpitations, chest pain. CT scan of chest demonstrating acute nondisplaced rib fractures of right ribs 4 and 5. Small 10% right basilar pneumothorax. Also, right basilar effusion, likely hemothorax in the setting of trauma. CBC: WC count 12.2, hemoglobin 7.9, hematocrit 24.2, platelets 379. Coagulation profile includes a PT of 10, INR of 0.9, APTT 18.6. CMP: Sodium 140, potassium 3.7, chloride 104, serum bicarb 27, BUN 32, creatinine 0.68, glucose 106. Lactic 1.8. LFTs u mildly elevated. Normal saline infusing at 75 mL/h. Current vitals: Heart rate 81 bpm, blood pressure 120/58, SpO2 94% on 2 L/min nasal cannula. Nontachypneic. No respiratory distress noted. Incentive spirometer at bedside. Pain is reportedly well-controlled. As needed analgesics ordered. 10/28/2024, the patient is clinically stable and still on 2 L of oxygen by nasal cannula. No interval worsening shortness of breath. Pain is under adequate control. Repeat chest x-ray was done this morning and there is no evidence of any pneumothorax. There is elevated right hemidiaphragm and multiple right-sided rib fractures and possibly development of right-sided pleural effusion which seems to be small at this point in time. Hemoglobin stable at 7.4, white second 11.1 and the platelet count is at 111. Rest of the electrolytes are all within normal limits. The patient has adequate pain control and she is using the incentive spirometer. She is also on normal saline at rate of 75 cc an hour. Rest of the medications will be resumed from home. On 10/29/2024, the patient complaining of some shortness of breath and pain along the right lateral chest area. Chest x-ray shows further opacification of the right lung and development of right-sided pleural effusion. She remains on 2 L of oxygen by nasal cannula. Pulse ox is 96%. She is afebrile. Hemoglobin is at 8.6 with a white cell count of 10 and a platelet count of 444. Electrolytes are all stable. Based on that, bedside thoracentesis was done a total of 5 images of pleural fluid that was serosanguineous/bloody was aspirated from the right lung without any complication. Subsequent chest x-ray is pending. Continue to use the incentive spirometer. On 10/30/2024, the patient is stable. No significant pain in her chest and the patient is on 3 L of oxygen by nasal cannula with a pulse ox of 95%. Thoracentesis was done yesterday with good results. Total of 500 cc of pleural fluid was aspirated from the right lung and the chest x-ray from today shows improved and there is some persistent elevation of the right hemidiaphragm. Right side rib fractures also noted. Otherwise, the patient is doing well. Hemodynamically stable. She requires assistance for mobility. Pain is under adequate control for now. WBC count is 18 with a hemoglobin 7.4 and a platelet count of 450. The patient is seen today October 31, 2024 in follow-up on the regular medical floor. She is currently resting in bed. Awake and alert in no acute distress. Maintaining O2 saturations in the 90s on 3 L/min per nasal cannula. She did undergo a right sided thoracentesis on 10/29/2024 with 500 mL of fluid removed. Fluid analysis was transudate with the protein of 2.8 and LDH of 330. Bloody in nature. Cytology pending. Her pain is well-controlled. Objective - Vital Signs Vital signs: Vital Signs Temp 98.0 F 10/31/24 06:53 Pulse 68 10/31/24 06:53 Resp 16 10/31/24 06:53 BP 105/59 10/31/24 06:53 Pulse Ox 95 10/31/24 06:53 FiO2 Intake & Output 10/30/24 10/31/24 10/31/24 18:59 06:59 18:59 Output Total 1575 500 Balance -1575 -500 Weight 47 kg 47 kg Output: Urine 1575 500 Stool 0 Other: Voiding Method Indwelling Catheter Indwelling Catheter - Exam GENERAL EXAM: Alert, 79-year-old female, resting in bed, on 2 L/min nasal cannula, in no respiratory distress. HEAD: Normocephalic and atraumatic EYES: Normal reaction of pupils, equal size. NOSE: Clear with pink turbinates. THROAT: No erythema or exudates. NECK: No masses, no JVD. CHEST: Tender right lateral chest. No subcutaneous emphysema or crepitus. LUNGS: Equal air entry with diminished right basilar lung sounds. Equal chest excursion. No conversational dyspnea. CVS: S1 and S2 normal with soft systolic murmur, regular rhythm. No extra heart sounds ABDOMEN: No hepatosplenomegaly, active bowel sounds, no guarding or rigidity. SPINE: No scoliosis or deformity SKIN: No rashes CENTRAL NERVOUS SYSTEM: No focal deficits, tone is normal in all 4 extremities. EXTREMITIES: Traumatic right lower extremity with bruising and edema. Peripheral pulses are intact. Neurovascular status intact. - Labs CBC & Chem 7: 10/30/24 05:35 10/29/24 07:09 Labs: Microbiology - Last 24 Hours (Table) 10/29/24 15:30 Gram Stain - Preliminary Pleural Fluid Body Fluid Culture - Preliminary Assessment and Plan Assessment: Traumatic right-sided hydropneumothorax, CT scan of chest demonstrating acute nondisplaced rib fractures of right ribs 4 and 5. Small 10% right basilar pneumothorax. Also, right basilar effusion, likely hemothorax in the setting of trauma. The patient underwent a thoracentesis and a total of 500 cc of pleural fluid was aspirated from the right lung. No residual effusion. No residual pneumothorax Right-sided pleural effusion, s/p thoracentesis with evacuation of 500 cc of pleural fluid, serosanguineous/bloody Acute hypoxemic respiratory failure, currently on 2 L/min nasal cannula, secondary to above Traumatic fall History of gait disturbance and frequent falls, reportedly supposed to ambulate with walker Chronic anemia with a stable hemoglobin History of hypertension History of hyperlipidemia History of hypothyroidism Former tobacco smoker, quit over 3 years ago Plan: The patient was seen and evaluated Medications reviewed Stable on 2 L nasal cannula Adequate pain control Add incentive spirometer Plan is for subacute rehab at discharge I have personally seen and examined the patient, performed the documentation and the assessment and plan as written. Number of minutes spent on the visit: 10 Dictation was produced using [employer] dictation software. Please excuse any grammatical, word or spelling errors.
--- NOTE | 2024-10-31 13:37 | P.PN ---
Subjective Progress Note Date: 10/31/24 - Reason for Consult Consult date: 10/27/24 Medical management - Chief Complaint Status post fall - History of Present Illness Patient is a 79 female with a known history of hypertension, hypothyroidism, hyperlipidemia presents to ER status post fall while coming out of the walk-in shower. Patient initially presented to [facility] and was transferred to [facility] for further trauma evaluation. Patient otherwise denied any recent illnesses. No fever no chills. No chest pain or s hortness of breath. Patient had CT head and CT cervical spine showed no acute fracture or dislocatio n. No acute findings noted. CT chest in the ER showed 10% right basilar pneumothorax. Multiple pre dominantly remote right-sided rib fractures are seen. There appears to be acute nondisplaced rib fracture of the right rib 4 and 5. There is evidence of right basilar pleural effusion and hemothorax with compressive atelectasis are continues to change. X-ray of the tibia/fibula showed no acute fracture or dislocation of the right tibia and fibula. Chest x-ray this morning showed no acute cardiopulmonary process. Laboratory data showed WBC 12.2 hemoglobin 7.9 and platelets 379 Sodium 140 potassium 3.7 chloride 104 bicarb is 27 BUN 32 and creatinine 0.68 and blood sugar 108 AST 99 ALT 56 and alk phos 78 total bili 1.2 and albumin 3.1. 10/28/2021 Patient is seen in follow-up today being followed by multiple consultations. No plans for immediate chest tube at this time with pulmonary and CT surgery following recommending follow-up x-rays. No pneumothorax evident on imaging and will hold off on chest tube per CT surgery unless patient clinically becomes more distressed. Patient is currently confused and appears to be sundowning at night and will add Seroquel and recommend limiting narcotic agents if possible. Will have PT/OT therapy evaluate the patient for possible ECF although plan is most likely to return home with family. 10/29/2024 Patient is seen in follow-up today with multiple consultations following including CT surgery and pulmonary. No plans for chest tube at this time and pulmonary planning on thoracentesis and per nursing staff approximately 700 cc removed and was sent for cytology. Noted to be all bloody on exam. Patient is afebrile with no reports of chest pain continues to have some discomfort. Encouraged increase activity as tolerated and will have PT/OT therapy reevaluate. Discussed further with case management regarding discharge planning once cleared by consultations. Continue using Seroquel at night. 10/30/2024 Patient is seen in follow-up status post thoracentesis and fluid culture thus far negative, cytology is pending with CT surgery and pulmonary following. Will follow-up with case management regarding discharge planning as patient wants to return home although is significantly weak and would likely benefit from ECF on discharge. Will have PT/OT therapy reevaluate in the a.m. Follow-up chest x- ray in a.m. as well. 10/31/2024 Patient is seen in follow-up with family at the bedside currently sitting up eating lunch doing relatively well. Patient continues on 2 L and recommend continuing with incentive spirometer use and weaning as tolerated. Patient is now agreeable to ECF and has been accepted and will be discharged today. Patient to follow-up with general surgery as well as pulmonary in the outpatient setting. Patient with significant weakness and two-person assist would benefit from ECF. Review of systems: Constitutional: No reports of fatigue, fever, or chills Cardiovascular: No reports of chest pain or palpitations Respiratory: No reports of shortness of breath or cough, reports less rib pain and discomfort when taking deep breaths GI: No reports of nausea, vomiting, or diarrhea : No reports of dysuria or retention Neurovascular: reports of generalized weakness All medications have been reviewed PHYSICAL EXAMINATION: Patient is sitting up in the bed comfortably, no acute distress, awake alert and oriented x 1-2, baseline, elderly appearing, ill-appearing, thin built.. HEENT: Normocephalic. Neck is supple. Pupils reactive. Nostrils clear. Oral cavity is moist. Neck reveals no JVD, carotid bruits, or thyromegaly. CHEST EXAMINATION: Trachea is central. Symmetrical expansion. Right basilar diminished sounds. Tenderness of the right rib cage. CARDIAC: Normal S1, S2 with no gallops. No murmurs ABDOMEN: Soft. Bowel sounds normal. No organomegaly. No abdominal bruits. Extremities: reveal no edema. Bruising over the right lower extremity no clubbing or cyanosis Neurologically awake, alert, oriented x3 with well-coordinated movements. Diffusely weak Skin: No rash or skin lesions. Psychiatric: Cooperative. Non-suicidal, anxious at times Musculoskeletal: No joint swelling or deformity. Normal range of motion. Assessment: Status post fall with the right side hemopneumothorax and nondisplaced acute rib fractures of the right ribs 4 and 5. Status postthoracentesis with approximately 700 cc removed. Cytology sent and pending Acute hypoxic respiratory failure requiring 2 L oxygen via nasal cannula Remote right-sided rib fractures bilaterally. Status post mechanical fall Gait disturbance and frequent falls with generalized weakness Anemia with hemoglobin 7.9 normocytic. acute blood loss anemia Elevated liver enzymes Hypertension Hypothyroidism Hyperlipidemia Mild protein calorie malnutrition with a BMI of 19.1 Prior history of smoking DVT prophylaxis with SCDs. GI prophylaxis Full code Plan: Patient will be continued on pain management, encourage incentive spirometry. Patient needs reinforcement on use of incentive spirometer and how to properly use Patient is status post thoracentesis on the right and awaiting cytology with pulmonary and CT surgery following. Patient to follow-up with results outpatient once discharged from ECF Encourage incentive spirometer use at least 10 times every hour while awake and sitting up. Wean FiO2 as tolerated Patient and family are now agreeable to ECF and has been accepted and will be discharged today continue Seroquel at night Overall prognosis is guarded Thank you kindly for this consultation. We will continue to follow with general surgery during hospitalization The impression and plan of care has been dictated by Anaya Pedraza, Nurse Practitioner as directed. Dr. Saurabh MD I have performed a history and examination and MDM of this patient, discussed the same with the dictator, and agree with the dictator's assessment and plan as written ,documented as a scribe. Based on total visit time, I have performed more than 50% of the visit. Objective - Vital Signs Vital signs: Vital Signs Temp 98.0 F 10/31/24 06:53 Pulse 68 10/31/24 06:53 Resp 16 10/31/24 06:53 BP 105/59 10/31/24 06:53 Pulse Ox 95 10/31/24 06:53 FiO2 Intake & Output 10/30/24 10/31/24 10/31/24 18:59 06:59 18:59 Output Total 1575 500 Balance -1575 -500 Weight 47 kg 47 kg Output: Urine 1575 500 Stool 0 Other: Voiding Method Indwelling Catheter Indwelling Catheter - Labs CBC & Chem 7: 10/30/24 05:35 10/29/24 07:09 Labs: Microbiology - Last 24 Hours (Table) 10/29/24 15:30 Gram Stain - Preliminary Pleural Fluid Body Fluid Culture - Preliminary
--- NOTE | 2024-11-08 16:39 | CDI ---
Documentation Clarification Form Date: 11/08/24 From: Kem Harvey, JENNYFER, RN Phone: [phone] or via [employer] Admit Date: 10/26/2024 10:53:00 PM Patient Name: Hanna Rojas Visit Number: [id number] Discharge Date: 10/31/2024 02:06:00 PM ATTENTION: The Clinical Documentation Specialists (CDI) and [facility] Coding Staff appreciate your assistance in clarifying documentation. Please respond to the clarification below the line at the bottom and electronically sign. The CDI & [facility] Coding staff will review the response and follow-up if needed. Please note: Queries are made part of the Legal Health Record. If you have any questions, please contact the author of this message via ITS. Faith Puckett PA-C This patient was admitted with right sided pneumothorax and right 4th/5th rib fractures. Additional clarification regarding the etiology of the fracture is requested. Patient history/risk factors: Per the H&P the patient reports multiple recent falls. Clinical Indicators: Surgery consult: Right-sided traumatic hemopneumothorax, status post fall from standing Per Surgery PN 10/28 and 10/29 patient is described as very frail CT chest on 10/26 multiple remote right sided rib fractures are seen; there appears to be acute nondisplaced rib fracture of right rib 4 and 5. Home medications include Fosamax 70 mg po weekly Treatment: Pain management consult recommended [place] for moderate pain and [place] for severe pain. Placing a thoracostomy tube at this point would likely cause her significant pain and may yield little benefit. No plan for chest tube placement at this time, however if she does get significantly worse clinically a chest tube could be considered. (Surgery PN 10/28) Patient underwent a thoracentesis on 10/29; Please clarify the etiology of the fracture, if known: [ ] Pathological fracture due to age related osteoporosis [ X] Traumatic fracture [ ] Other (please specify): [ ] Unable to determine MTDD
== END 2024-10-31 14:06 | DRG 199 ==
LOC: EC 19:52 → 3SCARD 22:53 → 4SSUR 10-29 17:54
PROVIDERS: ADMIT Surgery; ATTEND Surgery
PROC: 0W993ZX Drainage of Right Pleural Cavity, Percutaneous Approach, Diagnostic (ICD-10-PCS; principal; 2024-10-29)
DX: S27.2XXA Traumatic hemopneumothorax, initial encounter (principal); J96.01 Acute respiratory failure with hypoxia; S22.41XA Multiple fractures of ribs, right side, initial encounter for closed fracture; J90 Pleural effusion, not elsewhere classified; D62 Acute posthemorrhagic anemia; J98.11 Atelectasis; I10 Essential (primary) hypertension; E03.9 Hypothyroidism, unspecified; E78.5 Hyperlipidemia, unspecified; S80.11XA Contusion of right lower leg, initial encounter; R29.6 Repeated falls; R54 Age-related physical debility; R26.9 Unspecified abnormalities of gait and mobility; R74.8 Abnormal levels of other serum enzymes; Z91.199 Patient's noncompliance with other medical treatment and regimen due to unspecified reason; Z79.83 Long term (current) use of bisphosphonates; Z79.890 Hormone replacement therapy; Z79.899 Other long term (current) drug therapy; Z87.891 Personal history of nicotine dependence; Z91.81 History of falling; W18.30XA Fall on same level, unspecified, initial encounter; Y92.009 Unspecified place in unspecified non-institutional (private) residence as the place of occurrence of the external cause
CPT/HCPCS: 36415; 51798; 71045; 71250; 80048; 80053; 82565; 82945; 83605; 83615; 84157; 84520; 85025; 85610; 85730; 86850; 86900; 86901; 87070; 87205; 88108; 88305; 89050; 94760; 96360; 96361; 99284